=== PATIENT | male | born 1980 | race Caucasian/White ===

== ENCOUNTER 2016-06-28 00:34 | Inpatient (IN) | payer OTHER ==
[2016-06-28] VITALS (8 sets, daily range): BP systolic 131–146; BP diastolic 82–105
[~2016-06-28] VITALS: Ht 185.4 cm; Wt 92.3 kg
--- NOTE | 2016-06-28 02:47 | ED ORDER SUMMARY ---
..... Patient: OSBALDO BENEDICT OrderSheet [facility] VisitID: [id number] [place] [address] 35y, M Registration Date/Time: 06/28/2016 ORDER SHEET Weight: 90.7 kg (stated) Allergies: No Known Drug Allergy GENERAL ORDERS: CBC w Diff Urgent (01:00 06/28/2016 Julien Michelle) (Ack 1:02 SRedmond) (1:06 EInderbitzen R.N.) CMP Urgent (01:06/28/2016 Julien Michelle) (Ack 1:02 SRedmond) (1:06 EInderbitzen R.N.) Amylase Urgent (:06/28/2016 Julien Michelle) (Ack 1:02 SRedmond) (1:06 EInderbitzen R.N.) Lipase Urgent (:06/28/2016 Julien Michelle) (Ack 1:02 SRedmond) (1:06 EInderbitzen R.N.) - (Lipid panel) (02:33 06/28/2016 Julien Michelle) (Ack 2:36 SRedmond) (2:58 EInderbitzen R.N.) Urine Drug Screen Urgent (02:33 06/28/2016 Julien Michelle) (Ack 2:36 SRedmond) (2:57 EInderbitzen R.N.) UA-Culture if indicated Urgent (02:33 06/28/2016 Julien Michelle) (Ack 2:36 SRedmond) (2:57 EInderbitzen R.N.) MEDICATION ORDERS: Promethazine IV 25 mg (HIGH ALERT MEDICATION, NOW) (01:17 06/28/2016 Julien Michelle) (1:20 EInderbitzen R.N.) IV FLUIDS: IV NS : initial bolus none -, then 1000 mL/hr for X2 (NOW) (00:59 06/28/2016 Julien Michelle) (1:02 EInderbitzen R.N.) Zofran IV 4 mg (NOW) (00:59 06/28/2016 Julien Michelle) (1:02 EInderhudson R.N.) Demerol IV 50 mg (HIGH ALERT MEDICATION, NOW) (01:00 06/28/2016 Julien Michelle) (1:06 EInderhudson R.N.) IV Lactated Ringers : initial bolus none -, then 200 mL/hr (NOW) (02:47 06/28/2016 Julien Michelle) (2:58 EIdilip R.N.) Demerol IV 50 mg (HIGH ALERT MEDICATION, NOW) (02:53 06/28/2016 Julien Michelle) (2:58 EInderhudson R.N.) ORDER SHEET NOTES: [Electronically signed by Jasbir Hedrick Dr. (02:48 06/28/2016)] [Electronically signed by Aileen Dias R.N. (03:34 06/28/2016)] [Electronically locked/signed by Aileen iDas R.N. (03:34 06/28/2016)]
--- NOTE | 2016-06-28 02:47 | ED NURSING NOTES ---
Clinical Report - Nurses [facility] [address] [place] [address] 06/28/2016 0:38 Patient: OSBALDO BENEDICT TRIAGE Triage time 00:40 Jun 28 2016. Acuity: LEVEL 3. Chief Complaint: ABDOMINAL PAIN. 00:40 06/28/16. SEPSIS SCREEN: Sepsis Screen. Negative (no infection suspected/documented). ALESIA COMA SCORE: Alesia Coma Scale: 15- eyes open spontaneously (4); best verbal response- oriented x 4 (5); best motor response- obeys commands (6). --00:46 Aileen Dias R.N. 00:40 06/28/16. BP: 148/97. HR: 91. RR: 20. O2 saturation: 97%. Pain level now: 11/29. --00:46 Aileen Dias R.N. Weight: 90.7 kg stated. Height/Length: 73 inches Per Patient. BMI: 26.4. --00:40 Aileen Dias R.N. Medications Lipitor Oral. --00:42 Aileen Dias R.N. BuPROPion HCl Oral. --00:42 Aileen Dias R.N. Fish Oil + D3 Oral. --00:42 Aileen Dias R.N. Medication/allergy information source: the patient. --00:46 Aileen Dias R.N. Allergies No Known Drug Allergy. --00:42 Aileen Dias R.N. History Arrived by private vehicle. Historian: patient. Accompanied by family. This started yesterday. ( History of pancreatitis. He and were in [place] when pain started. Last episode of pancreatitis was alcohol related. He admits to being a binge drinker and they were drinking alot in [place]). He has had nausea, vomiting and abdominal pain. ( unable to keep down food or fluids.). No fever. Treatment [employer]: None. SOCIAL HX: Never smoker. Regular alcohol use. (binge drinker). No drug use. Recent travel by airplane in the last week- [place]. No infectious disease exposure. No known contact with a sick individual. SELF HARM ASSESSMENT: A self harm assessment was performed. The patient answered "no" to the question "Have you recently felt down, depressed, or hopeless?", "Have you noticed less interest or pleasure in doing things?", "Do you have thoughts of harming or killing yourself?", "Are you here because you tried to hurt yourself?", "Have you ever tried to hurt yourself before today?", "Have you recently had thoughts about harming or killing others?" and "Do you have any dangerous items in your possession?". NUTRITIONAL RISK ASSESSMENT: The nutritional risk assessment revealed no deficiencies. FUNCTIONAL ASSESSMENT: Functional assessment: no impairments noted. LEARNING NEEDS ASSESSMENT: The learning needs assessment revealed no barriers. SKIN INTEGRITY ASSESSMENT: Skin integrity risk assessment completed. No skin integrity risk identified. --00:46 Aileen Dias R.N. PROBLEMS: Pancreatitis. --00:42 Aileen Dias R.N. Interventions ID band on patient. --00:46 Aileen Dias R.N. PHYSICAL ASSESSMENT 00:48 06/28/16. Ambulatory to room. GENERAL / NEURO / PSYCH: Alert. Oriented X 4. Appears in pain. HEENT: Mucous membranes are pink. RESPIRATORY: Respirations not labored. CVS: Capillary refill less than 2 seconds. GI / : The patient has had nausea. Emesis noted. Abdomen soft. Abdominal tenderness present. Abdominal tenderness in the upper abdomen. No diffuse tenderness. ( very minimal urine output). SKIN: Skin is warm and dry. --00:48 Aileen Dias R.N. NURSING PROGRESS NOTES 00:47 06/28/2016 Site #1 started via IV in the left antecubital space with an 20g angiocath, with aseptic technique and good blood return; one attempt. Blood drawn: rainbow set. Labeled in the presence of the patient and sent to the lab. Saline lock flushed with 10 mL saline. --00:47 Aileen Dias R.N. 00:47 06/28/16. The initial plan of care for this patient includes an assessment with efforts to address the presence of pain; impairment of the gastrointestinal system. This plan of care was discussed with the patient and family. Patient gowned. Reassurance given. Patient identifiers checked. Call light placed in reach. Side rails up x 1. Bed placed in lowest position. Brakes of bed on. Patient ready for evaluation. --00:47 Aileen Dias R.N. 00:50 06/28/2016 Started bag #1 1000 mL IV Fluids IV NS (Saline); at 1000 mL/hr over 30 minute(s) via site #1 via IV pump. Allergies verified and confirmed 5 rights. IV patency established. IV site checked: no pain, redness, or swelling. IV flushed thoroughly pre- and post-medication administration. --01:02 Aileen Dias R.N. 00:50 06/28/2016 Zofran (Ondansetron HCl) IVP 4 mg given over 1 minute(s) via site #1. Allergies verified and confirmed 5 rights. IV patency established. IV site checked: no pain, redness, or swelling. IV flushed thoroughly pre- and post-medication administration. IVP given by RN. --01:02 Aileen Dias R.N. 01:05 06/28/2016 Demerol (Meperidine HCl) IVP 50 mg given over 1 minute(s) via site #1. Allergies verified and confirmed 5 rights. IV patency established. IV site checked: no pain, redness, or swelling. IV flushed thoroughly pre- and post-medication administration. IVP given by RN. --01:06 Aileen Dias R.N. ( Medicated for pain. family at bedside). --01:06 Aileen Dias R.N. 01:20 06/28/2016 PROMETHAZINE IVP 25 mg given over 10 minute(s) via site #1. Allergies verified and confirmed 5 rights. IV patency established. IV site checked: no pain, redness, or swelling. IV flushed thoroughly pre- and post-medication administration. IVP given by RN. --01:20 Aileen Dias R.N. 01:21 06/28/16. ( Remedicated for continued pain and nausea). --01:21 Aileen Dias R.N. 01:43 06/28/16. BP: 142/90. HR: 90. RR: 14. O2 saturation: 97%. --01:43 Aileen Dias R.N. 01:43 06/28/16. The patient is sleeping. --01:43 Aileen Dias R.N. 02:06/28/16. BP: 127/60. HR: 80. RR: 16. O2 saturation: 97%. Pain level now 05/01. --02:05 Aileen Dias R.N. 02:06/28/16. The patient is calm and resting quietly. Overall patient status is improved- he states feels better. GI / : The patient reports nausea is still present but improving. --02:05 Aileen Dias R.N. 02:55 06/28/2016 Started bag #1 1000 mL IV Fluids IV LACTATED RINGERS; at 200 mL/hr over 5 hour(s) via site #1 via IV pump. Allergies verified and confirmed 5 rights. IV patency established. IV site checked: no pain, redness, or swelling. IV flushed thoroughly pre- and post-medication administration. --02:58 Aileen Dias R.N. 02:56 06/28/2016 Demerol (Meperidine HCl) IVP 50 mg given over 1 minute(s) via site #1. Allergies verified and confirmed 5 rights. IV patency established. IV site checked: no pain, redness, or swelling. IV flushed thoroughly pre- and post-medication administration. IVP given by RN. --02:58 Aileen Dias R.N. DISPOSITION / DISCHARGE 03:29 06/28/2016 IV Fluids IV LACTATED RINGERS Continued: at the rate of 200 mL/hr. 900 mL remaining bag #1. IV patency established. IV site checked: no pain, redness, or swelling. IV flushed thoroughly. --03:29 Aileen Dias R.N. 03:30 06/28/2016 Site #[address] upon admission; patent. --03:30 Aileen Dias R.N. 03:30 06/28/16. Condition at departure: improved and stable. The goals identified in the patient's plan of care were met. Admitted to Acute Care (204). Report was given to a nurse via a phone call. Report included patient's care, treatment, medications, reviewed medication reconcilliation, and condition (including any recent changes or anticipated changes). All questions were answered. (to RAFFI Keller). Patient's personal items; items were placed in belongings bag. FALL RISK ASSESSMENT: Fall risk assessment completed. No fall risk identified. --03:30 Aileen Dias R.N. 03:30 06/28/16. BP: 126/70. HR: 51. RR: 15. O2 saturation: 97%. Temp: 97.9 F. Pain level now 10. --03:30 Aileen Dias R.N. 03:33 06/28/16. Departure time: 03:Jun 28 2016. --03:33 Aileen Dias R.N. Locked/Released at 06/28/2016 3:34 by Aileen Dias R.N.
--- NOTE | 2016-06-28 02:47 | ED ORDER SUMMARY ---
..... Patient: OSBALDO BENEDICT OrderSheet [facility] VisitID: [id number] [place] [address] 35y, M Registration Date/Time: 06/28/2016 ORDER SHEET Weight: 90.7 kg (stated) Allergies: No Known Drug Allergy GENERAL ORDERS: CBC w Diff Urgent (01:00 06/28/2016 Julien Michelle) (Ack 1:02 SRedmond) (1:06 EInderbitzen R.N.) CMP Urgent (01:06/28/2016 Julien Michelle) (Ack 1:02 SRedmond) (1:06 EInderbitzen R.N.) Amylase Urgent (:06/28/2016 Julien Michelle) (Ack 1:02 SRedmond) (1:06 EInderbitzen R.N.) Lipase Urgent (:06/28/2016 Julien Michelle) (Ack 1:02 SRedmond) (1:06 EInderbitzen R.N.) - (Lipid panel) (02:33 06/28/2016 Julien Michelle) (Ack 2:36 SRedmond) (2:58 EInderbitzen R.N.) Urine Drug Screen Urgent (02:33 06/28/2016 Julien Michelle) (Ack 2:36 SRedmond) (2:57 EInderbitzen R.N.) UA-Culture if indicated Urgent (02:33 06/28/2016 Julien Michelle) (Ack 2:36 SRedmond) (2:57 EInderbitzen R.N.) MEDICATION ORDERS: Promethazine IV 25 mg (HIGH ALERT MEDICATION, NOW) (01:17 06/28/2016 Julien Michelle) (1:20 EInderbitzen R.N.) IV FLUIDS: IV NS : initial bolus none -, then 1000 mL/hr for X2 (NOW) (00:59 06/28/2016 Julien Michelle) (1:02 EInderbitzen R.N.) Zofran IV 4 mg (NOW) (00:59 06/28/2016 Julien Michelle) (1:02 EInderhudson R.N.) Demerol IV 50 mg (HIGH ALERT MEDICATION, NOW) (01:00 06/28/2016 Julien Michelle) (1:06 EInderhudson R.N.) IV Lactated Ringers : initial bolus none -, then 200 mL/hr (NOW) (02:47 06/28/2016 Julien Michelle) (2:58 EIdilip R.N.) Demerol IV 50 mg (HIGH ALERT MEDICATION, NOW) (02:53 06/28/2016 Julien Michelle) (2:58 EInderhudson R.N.) ORDER SHEET NOTES: [Electronically signed by Jasbir Hedrick Dr. (02:48 06/28/2016)] [Electronically signed by Aileen Dias R.N. (03:34 06/28/2016)] [Electronically locked/signed by Aileen Dias R.N. (03:34 06/28/2016)]
--- NOTE | 2016-06-28 02:47 | ED CLINICAL REPORT ---
Clinical Report - Physicians/Mid Levels [facility] [address] [place] [address] 06/28/2016 0:38 Patient: OSBALDO BENEDICT Time Seen: 00:41; initial patient contact. Arrived- By private vehicle. Historian- patient. HISTORY OF PRESENT ILLNESS Chief Complaint: ABDOMINAL PAIN. At its maximum, severity described as moderate. When seen in the E.D., severity described as moderate. Modifying factors. Not worsened by anything. Not relieved by anything. It is described as sharp and it is described as located in the epigastric area and radiating to the upper back. This started last night and is still present (persistent). It was gradual in onset and has been constant. The patient has had nausea and loss of appetite. No vomiting or diarrhea. The patient has had recent travel in the last week- [place] (Binge drinking on vacation). Similar symptoms previously: Several times. Recent medical care: Not recently seen/assessed. REVIEW OF SYSTEMS No hematemesis, fever, chest pain, difficulty breathing or cough. He has had chills. All systems otherwise negative, except as recorded above. PAST HISTORY Multiple episodes of alcoholic pancreatitis. SOCIAL HISTORY Never smoker. Occasional alcohol use. (Binge drinker). No drug use. ADDITIONAL NOTES The nursing notes have been reviewed. PHYSICAL EXAM Vital Signs: 06/28/2016 00:40 BP: 148/97. HR: 91. RR: 20. O2 saturation: 97%. Pain level now: 9/10. Have been reviewed. Hypertensive. Heart rate normal. Respiratory rate normal. Temperature normal. Oxygen saturation normal. Appearance: Alert. Oriented X3. Eyes: Eyes normal inspection. ENT: Dry mucous membranes present. Neck: Normal inspection. CVS: Normal heart rate and rhythm. Heart sounds normal. Respiratory: No respiratory distress. Breath sounds normal. Abdomen: Soft. Moderate tenderness in the epigastric area with guarding present. No rebound tenderness or Sanchez's sign present. Bowel sounds normal. No organomegaly. No mass. Back: Normal inspection. Skin: Poor skin turgor. Skin warm and dry. Normal skin color. No rash. Extremities: No lower extremity edema. Neuro: Oriented X 3. LABS, X-RAYS, AND EKG Laboratory Tests: CBC w Diff: (JOHNNIE: 06/28/2016 01:00) ( MsgRcvd 06/28/2016 01:07) Final results Test Result Flag Units (Reference) WHITE BLOOD COUNT 19.5 H K/uL (4.5-11.5) RED BLOOD COUNT 5.28 M/uL (4.50-5.90) HEMOGLOBIN 15.6 gm/dL (13.5-17.5) HEMATOCRIT 45.8 % (41.0-53.0) MEAN CELL VOLUME 87 fL (80-100) MEAN CORPUSCULAR HGB 30 pg (26-34) MEAN CORPUSCULAR HGB CONC 34 g/dL (31-37) RED CELL DISTRIBUTION WIDTH 13.4 % (11.6-14.8) PLATELET COUNT 340 K/uL (150-400) NEUTROPHIL % 90.1 H % (50-75) LYMPH % 5.0 L % (25-40) MONO % 4.6 % (3-14) EOSINOPHIL % 0 % (0-4) BASOPHIL % 0.3 % (0-2) CMP: (JOHNNIE: 06/28/2016 01:00) ( MsgRcvd 06/28/2016 01:22) Final results Test Result Flag Units (Reference) GLUCOSE 142 H mg/dL (70-110) BUN 23 H mg/dL (7-18) CREATININE 1.0 mg/dL (0.6-1.3) Estimated GFR >60 mL/min Estimated GFR- >60 mL/min Note: Persistent reduction over 3 months in eGFR<60 mL/min/1.73 m2 defines CKD. Patients with eGFR values>=60 mL/min/1.73 m2 may also have CKD if evidence ofpersistent proteinuria. Additional information may be foundat www.kidney.org. SODIUM 139 mmol/L (136-145) POTASSIUM 4.1 mmol/L (3.5-5.1) CHLORIDE 101 mmol/L (98-107) CARBON DIOXIDE 26 mmol/L (21-32) CALCIUM 9.4 mg/dL (8.5-10.1) TOTAL PROTEIN 8.4 H g/dL (6.4-8.2) ALBUMIN 4.2 g/dL (3.3-5.0) BILIRUBIN, TOTAL 0.8 mg/dL (0.0-1.0) ALKALINE PHOSPHATASE 71 U/L (46-116) AST (SGOT) 50 H U/L (15-37) ALT (SGPT) 78 U/L (12-78) LIPASE 2056 H U/L (73-393) AMYLASE 149 H U/L (25-115) . PROGRESS AND PROCEDURES Discussed case with hospitalist, (call returned 02:30 Dr. Schmitt. Add lipid panel and will place in obs.). Disposition: Observation in Acute Care. Condition: good. CLINICAL IMPRESSION Acute alcoholic pancreatitis. Moderate leukocytosis. INSTRUCTIONS Follow-up: Screening today revealed the patient's blood pressure to be in the pre-hypertensive range. The patient was admitted and blood pressure will be managed during the admission. (Electronically signed by Jasbir Hedrick Dr. 06/28/2016 2:48)
--- NOTE | 2016-06-28 03:36 | ED MED RECONCILIATION SUMMARY ---
Patient: OSBALDO BENEDICT Medication Reconciliation Report [facility] VisitID: [id number] [address] [place] [address] 35y, M Registration Date/Time: 06/28/2016 Weight: 90.7 kg Height/Length: 73 in. BMI: 26.4 ALLERGIES: No Known Drug Allergy The patient's Home Medications are listed below: THE FOLLOWING MEDICATIONS NEED TO BE RECONCILED: BuPROPion HCl Oral Fish Oil + D3 Oral Lipitor Oral The source(s) of the original Home Medication information: patient The following Medications were given to the patient in the Emergency Department: IV NS IV Fluids bolus 0, then 1000 mL/hr, administered: 06/28/2016 12:50:00 AM Zofran [IVP] IVP 4 mg, administered: 06/28/2016 12:50:00 AM Demerol [IVP] IVP 50 mg, administered: 06/28/2016 1:05:00 AM PROMETHAZINE [IVP] IVP 25 mg, administered: 06/28/2016 1:20:00 AM IV LACTATED RINGERS IV Fluids bolus 0, then 200 mL/hr, administered: 06/28/2016 2:55:00 AM Demerol [IVP] IVP 50 mg, administered: 06/28/2016 2:56:00 AM The following Medications were prescribed to the patient: None.
--- NOTE | 2016-06-28 03:36 | ED DISCHARGE INSTRUCTIONS ---
Patient: OSBALDO BENEDICT General Instructions [facility] VisitID: [id number] [address] [place] [address] 35y, M Registration Date/Time: 06/28/2016 Acute alcoholic pancreatitis. Moderate leukocytosis. INSTRUCTIONS Follow-up: Screening today revealed the patient's blood pressure to be in the pre-hypertensive range. The patient was admitted and blood pressure will be managed during the admission. (Electronically signed by Jasbir Hedrick Dr. 06/28/2016 2:48)
--- NOTE | 2016-06-28 03:36 | ED DISCHARGE INSTRUCTIONS ---
Patient: OSBALDO BENEDICT General Instructions [facility] VisitID: [id number] [address] [place] [place] [address] 35y, M Registration Date/Time: 06/28/2016 Acute alcoholic pancreatitis. Moderate leukocytosis. INSTRUCTIONS Follow-up: Screening today revealed the patient's blood pressure to be in the pre-hypertensive range. The patient was admitted and blood pressure will be managed during the admission. (Electronically signed by Jasbir Hedrick Dr. 06/28/2016 2:48)
--- NOTE | 2016-06-28 03:36 | ED MAR SUMMARY ---
..... Medication Administration Record [facility] [address] [place] [address] Patient: OSBALDO BENEDICT Visit ID: [id number] 35y, M Weight: 90.7 kg Height/Length: 73 in BMI: 26.4 ALLERGIES: No Known Drug Allergy Start 00:50 06/28/2016 Aileen Dias R.N. Medication Administered: IV NS (SALINE), Dose: IV Fluids over 30 minute(s), Rate: 1000 mL/hr, Dispensed: 1000 mL bag, Site: #1 left AC. Medication Ordered: IV NS : initial bolus none -, then 1000 mL/hr for X2 (NOW). Given 00:50 06/28/2016 Aileen Dias R.N. Medication Administered: ZOFRAN [IVP] (ONDANSETRON HCL), Dose: 4 mg IVP over 1 minute(s), Site: #1 left AC. Medication Ordered: Zofran IV 4 mg (NOW). Given 01:05 06/28/2016 Aileen Dias R.N. Medication Administered: DEMEROL [IVP] (MEPERIDINE HCL), Dose: 50 mg IVP over 1 minute(s), Site: #1 left AC. Medication Ordered: Demerol IV 50 mg (HIGH ALERT MEDICATION, NOW). Given 01:20 06/28/2016 Aileen Dias R.N. Medication Administered: PROMETHAZINE [IVP], Dose: 25 mg IVP over 10 minute(s), Site: #1 left AC. Medication Ordered: Promethazine IV 25 mg (HIGH ALERT MEDICATION, NOW). Start 02:55 06/28/2016 Aileen Dias R.N., Continued Upon Disposition 03:29 06/28/2016 Aileen Dias R.N. Medication Administered: IV LACTATED RINGERS, Dose: IV Fluids over 5 hour(s), Rate: 200 mL/hr, Dispensed: 1000 mL bag, Site: #1 left AC. Medication Ordered: IV Lactated Ringers : initial bolus none -, then 200 mL/hr (NOW). Given 02:56 06/28/2016 Aileen Dias R.N. Medication Administered: DEMEROL [IVP] (MEPERIDINE HCL), Dose: 50 mg IVP over 1 minute(s), Site: #1 left AC. Medication Ordered: Demerol IV 50 mg (HIGH ALERT MEDICATION, NOW).
--- NOTE | 2016-06-28 03:36 | ED MAR SUMMARY ---
..... Medication Administration Record [facility] [address] [place] [address] Patient: OSBALDO BENEDICT Visit ID: [id number] 35y, M Weight: 90.7 kg Height/Length: 73 in BMI: 26.4 ALLERGIES: No Known Drug Allergy Start 00:50 06/28/2016 Aileen Dias R.N. Medication Administered: IV NS (SALINE), Dose: IV Fluids over 30 minute(s), Rate: 1000 mL/hr, Dispensed: 1000 mL bag, Site: #1 left AC. Medication Ordered: IV NS : initial bolus none -, then 1000 mL/hr for X2 (NOW). Given 00:50 06/28/2016 Aileen Dias R.N. Medication Administered: ZOFRAN [IVP] (ONDANSETRON HCL), Dose: 4 mg IVP over 1 minute(s), Site: #1 left AC. Medication Ordered: Zofran IV 4 mg (NOW). Given 01:05 06/28/2016 Aileen Dias R.N. Medication Administered: DEMEROL [IVP] (MEPERIDINE HCL), Dose: 50 mg IVP over 1 minute(s), Site: #1 left AC. Medication Ordered: Demerol IV 50 mg (HIGH ALERT MEDICATION, NOW). Given 01:20 06/28/2016 Aileen Dias R.N. Medication Administered: PROMETHAZINE [IVP], Dose: 25 mg IVP over 10 minute(s), Site: #1 left AC. Medication Ordered: Promethazine IV 25 mg (HIGH ALERT MEDICATION, NOW). Start 02:55 06/28/2016 Aileen Dias R.N., Continued Upon Disposition 03:29 06/28/2016 Aileen Dias R.N. Medication Administered: IV LACTATED RINGERS, Dose: IV Fluids over 5 hour(s), Rate: 200 mL/hr, Dispensed: 1000 mL bag, Site: #1 left AC. Medication Ordered: IV Lactated Ringers : initial bolus none -, then 200 mL/hr (NOW). Given 02:56 06/28/2016 Aileen Dias R.N. Medication Administered: DEMEROL [IVP] (MEPERIDINE HCL), Dose: 50 mg IVP over 1 minute(s), Site: #1 left AC. Medication Ordered: Demerol IV 50 mg (HIGH ALERT MEDICATION, NOW).
--- NOTE | 2016-06-28 03:36 | ED MED RECONCILIATION SUMMARY ---
Patient: OSBALDO BENEDICT Medication Reconciliation Report [facility] VisitID: [id number] [address] [place] [address] 35y, M Registration Date/Time: 06/28/2016 Weight: 90.7 kg Height/Length: 73 in. BMI: 26.4 ALLERGIES: No Known Drug Allergy The patient's Home Medications are listed below: THE FOLLOWING MEDICATIONS NEED TO BE RECONCILED: BuPROPion HCl Oral Fish Oil + D3 Oral Lipitor Oral The source(s) of the original Home Medication information: patient The following Medications were given to the patient in the Emergency Department: IV NS IV Fluids bolus 0, then 1000 mL/hr, administered: 06/28/2016 12:50:00 AM Zofran [IVP] IVP 4 mg, administered: 06/28/2016 12:50:00 AM Demerol [IVP] IVP 50 mg, administered: 06/28/2016 1:05:00 AM PROMETHAZINE [IVP] IVP 25 mg, administered: 06/28/2016 1:20:00 AM IV LACTATED RINGERS IV Fluids bolus 0, then 200 mL/hr, administered: 06/28/2016 2:55:00 AM Demerol [IVP] IVP 50 mg, administered: 06/28/2016 2:56:00 AM The following Medications were prescribed to the patient: None.
--- NOTE | 2016-06-28 03:49 | NUR ---
ADMITTED FROM ED PER KATHRYN ACCOMPANIED BY AND STAFF. ABLE TO TRANSFER TO BED WITH SBA. IVF LR INFUSING TO LAC.
[2016-06-28] MEDS ORDERED: BUPROPION HCL150 M3 PO (05:04)
[2016-06-28] MEDS ORDERED: FISH OIL + D3 PO (05:05)
[2016-06-28] MEDS ORDERED: LIPITOR10 MG PO (05:05)
--- NOTE | 2016-06-28 06:43 | Progress Note ---
Subjective General Admission History and Physical Examination Patient Name: Jesus Ann Admission Date: June 28, 2016 Primary Care Provider: None Attending Physician: Silvestre Schmitt M.D. Admitting Physician: Silvestre Schmitt M.D. Code Status: Full Code Room: 204-B SUBJECTIVE Historian: Patient and Reliability: Good Chief Complaint: Abdominal pain, nausea, vomiting History of Present Illness: The patient is a 35-year-old white male with a significant past medical history of hyperlipidemia, depression, who presented to [facility] emergency department on the day of admission secondary to complaints of abdominal pain, nausea, and vomiting of 2 days' duration. [facility] ER evaluation was consistent with acute pancreatitis felt secondary to alcohol abuse. Secondary to the above, the patient was admitted by Silvestre Schmitt M.D. for further evaluation treatment. The history of present was pale began on the day prior to admission when the patient developed abdominal pain in the epigastric region, nausea, and vomiting. This occurred at the end of a long vacation in [place] where the patient had consumed large amounts of alcohol. He has a previous history of alcohol-induced pancreatitis. Secondary to increasing symptoms patient's sought out medical attention on arrival home from vacation. [facility] ER evaluation showed physical findings and laboratory testing consistent with acute pancreatitis. No imaging studies were obtained. Secondary to the above, the patient was admitted for further evaluation and treatment. PAST MEDICAL HISTORY Illnesses: 1. Recurrent pancreatitis 2. Gastritis 3. Hyperlipidemia 4. Depression Allergies: 1. No Known Drug Allergies Medications: 1. Lipitor dosage unknown one by mouth daily 2. Bupropion dosage unknown one by mouth twice a day 3. Fish oil dosage unknown one by mouth 3 times a day 4. Multivitamin one by mouth daily Surgery: 1. 2016, Achilles tendon repair Injuries: 1. Achilles tendon rupture Hospitalizations: 1. For above surgery and medical problems. FAMILY HISTORY Parents: 1. Father, Antony, living, 63, hypercholesterolemia, 2. Mother, Cammy, living, 63, also Alzheimer's dementia Siblings: 1. Female, Anastacia, living, 29, kidney disease Children: 1. Female, To, living, 6, healthy 2. Male, Yoni, , 5 months, SIDS Other significant family history: None SOCIAL HISTORY 1. Marital Status: 2. Baptism: None 3. Education: High school, 2 years college with AA degree 4. Employment History: [employer] 2-1/2 years, currently unemployed 5. Occupational health exposures: None HABITS 1. Tobacco: None 2. Drugs: None 3. Alcohol: Binge drinking 4. Caffeine: None HEALTH SUPERVISION Item/Test 1. Not reviewed IMMUNIZATIONS: 1. Pneumococcal: No previous 2. Influenza: Unknown 3. Tetanus: Unknown ADVANCED DIRECTIVES: 1. Living well: No 2. POLST: No 3. Code Status: FULL CODE 4. Durable [employer] Health care: No 5. Donor card: No REVIEW OF SYSTEMS Remarkable for those things stated in the history of present illness and past medical history. Seventeen point review of system completed with the following notable findings: General: Abdominal pain Genitourinary: Poor urinary stream Gastrointestinal: Nausea and vomiting, heartburn, reflux Psychological: Depression, insomnia, anxiety Physical Exam Vital Signs / I&Os Vital Signs Date Time Temp Pulse Resp B/P Pulse O2 O2 Flow FiO2 Ox Delivery Rate 06/28 0513 131/95 06/28 0354 97.9 89 20 145/105 97 Room Air General Appearance Alert, Oriented X3, Cooperative, No acute distress HEENT Atraumatic, PERRLA, EOMI, Moist mucous membranes Lungs Clear to auscultation, Normal air movement Neck Supple, No JVD Cardiovascular Regular rate and rhythm, Normal S1 and S2, No murmurs, gallops, rubs Abdomen Normal bowel sounds, Soft, epigastric tenderness present. No rebound. Extremities No cyanosis, No clubbing, No edema, Normal pulses Neurological Cranial nerves intact, Strength 5/5 x4 ext's, No lateralizing signs Psych/Mental Status Mental status normal, Mood normal LAB Results Laboratory Tests 06/28 06/28 06/28 0250 0235 0100 Chemistry Plasma Sodium (136 - 145 mmol/L) 139 Plasma Potassium (3.5 - 5.1 mmol/L) 4.1 Plasma Chloride (98 - 107 mmol/L) 101 CO2 (Enzymatic) (21 - 32 mmol/L) 26 BUN (7 - 18 mg/dL) 23 Creatinine (0.6 - 1.3 mg/dL) 1.0 Est GFR ( Amer) (mL/min) >60 Est GFR (Non-Af Amer) (mL/min) >60 Glucose (70 - 110 mg/dL) 142 Plasma Calcium (8.5 - 10.1 mg/dL) 9.4 Total Bilirubin (0.0 - 1.0 mg/dL) 0.8 AST (15 - 37 U/L) 50 ALT (12 - 78 U/L) 78 Alkaline Phosphatase (46 - 116 U/L) 71 Total Protein (6.4 - 8.2 g/dL) 8.4 Albumin (3.3 - 5.0 g/dL) 4.2 Triglycerides (30 - 200 mg/dL) Cancelled Pending Cholesterol (140 - 200 mg/dL) Cancelled Pending LDL Cholesterol, Calc (mg/dL) Cancelled Pending HDL Cholesterol (32 - 96 mg/dL) Cancelled Pending LDL/HDL Ratio Cancelled Pending Cholesterol/HDL Ratio Cancelled Pending Coronary Risk Interp (0.4 - 1.0) Cancelled Pending Amylase (25 - 115 U/L) 149 Lipase (73 - 393 U/L) 2056 Hematology WBC (4.5 - 11.5 K/uL) 19.5 RBC (4.50 - 5.90 M/uL) 5.28 Hgb (13.5 - 17.5 gm/dL) 15.6 Hct (41.0 - 53.0 %) 45.8 MCV (80 - 100 fL) 87 MCH (26 - 34 pg) 30 RDW (11.6 - 14.8 %) 13.4 Neut % (Auto) (50 - 75 %) 90.1 Lymph % (Auto) (25 - 40 %) 5.0 [place] % (Auto) (3 - 14 %) 4.6 Eos % (Auto) (0 - 4 %) 0 Baso % (Auto) (0 - 2 %) 0.3 Plt Count, EDTA (150 - 400 K/uL) 340 PUBS MCHC (31 - 37 g/dL) 34 Toxicology Urine Opiates Screen (NEGATIVE) POSITIVE Urine Methadone Screen (NEGATIVE) NEGATIVE Ur Barbiturates Screen (NEGATIVE) NEGATIVE U Amphetamin/Meth Scrn (NEGATIVE) NEGATIVE MDMA (Ecstasy) Screen (NEGATIVE) POSITIVE U Benzodiazepines Scrn (NEGATIVE) POSITIVE Urine Cocaine Screen (NEGATIVE) NEGATIVE U Cannabinoids Screen (NEGATIVE) NEGATIVE Urines Urine Color RIGOBERTO Urine Appearance CLEAR Urine pH (5.0 - 8.0) 6.0 Ur Specific [place] (1.010 - 1.030) >= 1.030 Urine Protein (NEGATIVE) 1+ Urine Ketones (NEGATIVE) NEGATIVE Urine Blood (NEGATIVE) NEGATIVE Urine Nitrite (NEGATIVE) NEGATIVE Urine Bilirubin (NEGATIVE) NEGATIVE Urine Urobilinogen (0.2 - 1.0 EU/dL) 0.2 Ur Leukocyte Esterase (NEGATIVE) NEGATIVE Urine RBC (0 - 1 rbc/hpf) NONE SEEN Urine WBC (0 - 1 wbc/hpf) 0-1 Ur Epithelial Cells (0 - 5 EPI/hpf) 1-3 Urine Bacteria (NONE SEEN) FEW (1+) Urine Glucose (NEGATIVE) NEGATIVE Urine Comment CULT NOT INDICATED Assessment and Plan Problem List 1. Pancreatitis, alcoholic, acute Plan -Patient presents with findings of acute pancreatitis. -Patient has experienced previous episodes of pancreatitis stated to be related to alcohol consumption -Obtain lipid profile -Abdominal ultrasound -IV fluid therapy, nothing by mouth except ice chips, anti-medics, pain medications -Monitor 2. Hyperlipidemia Status Chronic Onset Date Unknown Plan -The patient has a history of hyperlipidemia -We'll obtain lipid profile to assess for hypertriglyceridemia -Placed back on oral medications when appropriate -Monitor -Low-cholesterol/low-fat diet when taking orally 3. Depression Status Chronic Onset Date Unknown Plan -Patient with history of depression -Continue outpatient medical regimen when taking well orally 4. Alcohol abuse Status Chronic Onset Date Unknown Plan -Patient with history of alcohol abuse/binge drinking -We'll discuss alcohol consumption habits with patient during his hospital stay -I discussed curtailing alcohol consumption post hospitalization. Current status: Fair, unstable Anticipated discharge date: Anticipated discharge in 2-3 days Anticipated discharge placement: Home Patient care time: Time spent in chart review, patient interview, physical exam, CPOE, and care documentation: 70 minutes Visit to patient today: 1 Complexity of care: High Initial patient evaluation: Emergency department E&M Codes Admission: Inpt-High/[id number]
[2016-06-28] MEDS ORDERED: [UNRECOGNIZED DRUG - OTHER] PO (12:18)
--- NOTE | 2016-06-28 12:35 | DIAGNOSTIC IMAGING REPORT ---
PROCEDURE: US ABDOMEN ULTRASOUND-COMPLETE INDICATION: pancreatitis TECHNIQUE: Muir scale and color Doppler sonographic images of the abdomen were obtained without comparison. COMPARISON: None. FINDINGS: There is a small amount of fluid around the tip of the liver. The liver is normal in size, contour, and echotexture. No mass or intrahepatic biliary dilatation. The gallbladder is distended but appears normal without stones or sludge. The wall is normal thickness measuring 2.3 mm No pericholecystic fluid or Sanchez sign. The extrahepatic common duct is not seen due to bowel gas. The pancreas was not seen secondary to bowel gas. The mid and distal abdominal aorta was also shadowed. Retrohepatic inferior vena cava is patent. There is appropriate direction of flow in the portal vein. The right kidney measures 13.6 cm in length. The left kidney measures 13.5 centimeters in length. Both kidneys demonstrate normal morphology and cortical thickness without hydronephrosis, cyst, solid mass, or shadowing calculus. Color Doppler imaging demonstrates normal blood flow in each kidney. In the left upper quadrant of the abdomen, there is an irregular cystic structure adjacent to the spleen measuring about 10.6 x 8.8 cm with probable septation. The spleen is normal in size measuring 11.2 cm in length. IMPRESSION: 1. 10.6 cm left upper quadrant cystic structure. In the setting of pancreatitis, this is suspicious for a pseudocyst. 2. Nonvisualization of the majority the pancreas. 3. Trace right upper quadrant free fluid. 4. Normal-appearing gallbladder. Common duct was not visible. 5. Findings discussed with Dr. Coombs.
--- NOTE | 2016-06-28 14:30 | NUR ---
0800- ASSESSMENT COMPLETED. PT IS ALERT AND ORIENTED. C/O NAUSEA, NO VOMITING. CONSTANT ABD PAIN. MANAGING WITH IV PAIN MEDS. 1000- PATIENT REQUESTING JAZZY TYLER MD ORDERED OK.
--- NOTE | 2016-06-28 15:30 | NUR ---
PT ALERT AND ORIENTED IN BED, AMBULATED TO BR WELL, WITHOUT ISSUE. REQUESTS ICE CHIPS FROM [facility] AND NURSES THAT GO INTO ROOM. HAD CONVERSATION WITH PT ABOUT IMPORTANCE OF NPO AND RESTING ABD. PT BEGAN FIDGETING WITH WASHCLOTH THAT WAS ON HEAD. ASKED PT IF FELT HOT, STATED "FEEL LIKE I HAVE A FEVER". RINSED IN COLD WATER FOR RELIEF. PT IS DIAPHORETIC, SLIGHT TREMORS AND EYES ARE SHIFTING L TO R. STATES PAIN IN R MID QUADRANT OF ABD. NO RIGIDITY NOTED. SCORED 7 ON WITHDRAWL SCALE. MONITORING URINE OUTPUT. WCTM.
--- NOTE | 2016-06-28 19:28 | NUR ---
PT HAD FAMILY VISITING AND REQUESTED SINGLE ROOM. MOVED FROM 4B TO 2. DAUGHTER AND SON WERE UPSET AND PT WAS VISIBLY IRRITATED WITH VISIT AND KIDS TALKING. DID NOT WANT TO ANSWER 'S QUESTIONS AND DIVERTED THEM TO THIS RN. WASHCLOTH REMAINS ON FOREHEAD AND IS FIDGETED WITH. PT AMBULATED TO BR AND STATED PAIN IN ABD DUE TO "GETTING UP TOO FAST". FELT BETTER AFTER RESTING. MONITORING WITHDRAWL SX.
--- NOTE | 2016-06-28 21:07 | NUR ---
PT AMBULATED TO BR WELL, DENIES PAIN AT THIS TIME. SEEMS TO BE CALMER AND LESS ANXIOUS.
--- NOTE | 2016-06-29 00:34 | NUR ---
PT. IS AWAKE AT THIS TIME, RESTING AND CALM. WAS C/O 6/10 ABDOMINAL PAIN, ADMINISTERED DILAUDID PER ORDER. PT. STATES THIS WAS EFFECTIVE. ETOH PROTOCOL SCORE AT 6. DENIES NAUSEA. GAVE SMALL AMOUNT OF ICE CHIPS. CALL LIGHT WITHIN REACH. WCTM.
[2016-06-29 03:00] VITALS: BP 134/89
[2016-06-29 06:15] VITALS: BP 140/90
--- NOTE | 2016-06-29 07:37 | NUR ---
AT APPROX. 0630, PT. BEGAN TO C/O DIZZINESS AND THE "ROOM IS SPINNING." AND STATED THAT HE DIDN'T FEEL HIMSELF. VSS, NOTIFIED DR. ESPINOZA. NO NEW ORDERS.
--- NOTE | 2016-06-29 08:39 | Progress Note ---
Subjective General Brief Hx: The patient is a 35-year-old white male with a significant past medical history of hyperlipidemia, depression, who presented to [facility] emergency department on the day of admission secondary to complaints of abdominal pain, nausea, and vomiting of 2 days' duration. [facility] ER evaluation was consistent with acute pancreatitis felt secondary to alcohol abuse. Secondary to the above, the patient was admitted by Silvestre Schmitt M.D. for further evaluation treatment. The history of present was pale began on the day prior to admission when the patient developed abdominal pain in the epigastric region, nausea, and vomiting. This occurred at the end of a long vacation in [place] where the patient had consumed large amounts of alcohol. He has a previous history of alcohol-induced pancreatitis. Secondary to increasing symptoms patient's sought out medical attention on arrival home from vacation. [facility] ER evaluation showed physical findings and laboratory testing consistent with acute pancreatitis. No imaging studies were obtained. Secondary to the above, the patient was admitted for further evaluation and treatment. Currently, a little better than yesterday. Feels a little dry at this time and conc entrated urine. Not much nausea or vomiting. Feeling better but not passing gas. Physical Exam Vital Signs / I&Os Vital Signs Date Time Temp Pulse Resp B/P Pulse O2 O2 Flow FiO2 Ox Delivery Rate 06/29 0615 99.1 99 16 140/90 92 Room Air 06/29 0300 99.7 95 18 134/89 92 Room Air 06/29 0021 98.6 94 06/28 2246 100.2 101 18 140/90 92 Room Air 06/28 1814 97.5 94 20 138/99 96 Room Air 06/28 1423 97.7 93 20 140/98 98 Room Air 06/28 1421 99.1 93 20 135/82 98 Room Air 06/28 1219 97.3 103 20 146/101 98 Room Air I&O 06/29 0000 06/28 1600 06/28 0800 Intake Total 955 1764 242 Output Total 625 150 200 Balance 330 1614 42 General Appearance Alert, Cooperative HEENT Normal exam Lungs Normal exam, Clear to auscultation, Normal air movement Cardiovascular Regular rate and rhythm, Normal S1 and S2, No murmurs, gallops, rubs Abdomen slightly distended, tender diffusely Extremities No edema LAB Results Laboratory Tests 06/29 06/29 06/28 0757 0757 1012 Chemistry Plasma Sodium (136 - 145 mmol/L) Pending 141 Plasma Potassium (3.5 - 5.1 mmol/L) Pending 4.1 Plasma Chloride (98 - 107 mmol/L) Pending 106 CO2 (Enzymatic) (21 - 32 mmol/L) Pending 25 BUN (7 - 18 mg/dL) Pending 21 Creatinine (0.6 - 1.3 mg/dL) Pending 0.8 Est GFR ( Amer) (mL/min) Pending >60 Est GFR (Non-Af Amer) (mL/min) Pending >60 Glucose (70 - 110 mg/dL) Pending 121 Plasma Calcium (8.5 - 10.1 mg/dL) Pending 8.5 Total Bilirubin (0.0 - 1.0 mg/dL) Pending 0.8 AST (15 - 37 U/L) Pending 30 ALT (12 - 78 U/L) Pending 53 Alkaline Phosphatase (46 - 116 U/L) Pending 54 Total Protein (6.4 - 8.2 g/dL) Pending 6.6 Albumin (3.3 - 5.0 g/dL) Pending 3.1 Triglycerides (30 - 200 mg/dL) 217 Cholesterol (140 - 200 mg/dL) 112 LDL Cholesterol, Calc (mg/dL) 16 HDL Cholesterol (32 - 96 mg/dL) 53 LDL/HDL Ratio 0.3 Cholesterol/HDL Ratio 2.1 Coronary Risk Interp (0.4 - 1.0) 0.4 Amylase (25 - 115 U/L) 129 227 Lipase (73 - 393 U/L) 1443 7403 Hematology WBC (4.5 - 11.5 K/uL) 14.3 14.8 RBC (4.50 - 5.90 M/uL) 4.36 4.90 Hgb (13.5 - 17.5 gm/dL) 12.9 14.2 Hct (41.0 - 53.0 %) 37.7 42.7 MCV (80 - 100 fL) 87 87 MCH (26 - 34 pg) 30 29 RDW (11.6 - 14.8 %) 13.5 13.3 Neut % (Auto) (50 - 75 %) 87.8 66 Lymph % (Auto) (25 - 40 %) 8.2 9 [place] % (Auto) (3 - 14 %) 3.4 2 Eos % (Auto) (0 - 4 %) 0.5 2 Baso % (Auto) (0 - 2 %) 0.1 0 Band Neutrophils % (0 - 8 %) 21 Metamyelocytes % (0 - 1 %) 0 Myelocytes (0 - 1 %) 0 Other Cell Type 0 Plt Count, EDTA (150 - 400 K/uL) 194 235 RBC Morphology (6294 A) NORMOCHROMIC PUBS MCHC (31 - 37 g/dL) [address] abdmen: IMPRESSION: 1. 10.6 cm left upper quadrant cystic structure. In the setting of pancreatitis, this is suspicious for a pseudocyst. 2. Nonvisualization of the majority the pancreas. 3. Trace right upper quadrant free fluid. 4. Normal-appearing gallbladder. Common duct was not visible. Assessment and Plan Problem List 1. Pancreatitis, alcoholic, acute Plan Patient is wtih alcholic pancreatitis and large pseudocyst. 2. Leukocytosis, unspecified Plan Has improvement slight this am. 3. Alcohol abuse Status Chronic Onset Date Unknown Plan Discussed quitting drinking overall and AA this am.
--- NOTE | 2016-06-29 08:39 | Progress Note ---
Subjective General Brief Hx: The patient is a 35-year-old white male with a significant past medical history of hyperlipidemia, depression, who presented to [facility] emergency department on the day of admission secondary to complaints of abdominal pain, nausea, and vomiting of 2 days' duration. [facility] ER evaluation was consistent with acute pancreatitis felt secondary to alcohol abuse. Secondary to the above, the patient was admitted by Silvestre Schmitt M.D. for further evaluation treatment. The history of present was pale began on the day prior to admission when the patient developed abdominal pain in the epigastric region, nausea, and vomiting. This occurred at the end of a long vacation in [place] where the patient had consumed large amounts of alcohol. He has a previous history of alcohol-induced pancreatitis. Secondary to increasing symptoms patient's sought out medical attention on arrival home from vacation. [facility] ER evaluation showed physical findings and laboratory testing consistent with acute pancreatitis. No imaging studies were obtained. Secondary to the above, the patient was admitted for further evaluation and treatment. Currently, a little better than yesterday. Feels a little dry at this time and conc entrated urine. Not much nausea or vomiting. Feeling better but not passing gas. Physical Exam Vital Signs / I&Os Vital Signs Date Time Temp Pulse Resp B/P Pulse O2 O2 Flow FiO2 Ox Delivery Rate 06/29 0615 99.1 99 16 140/90 92 Room Air 06/29 0300 99.7 95 18 134/89 92 Room Air 06/29 0021 98.6 94 06/28 2246 100.2 101 18 140/90 92 Room Air 06/28 1814 97.5 94 20 138/99 96 Room Air 06/28 1423 97.7 93 20 140/98 98 Room Air 06/28 1421 99.1 93 20 135/82 98 Room Air 06/28 1219 97.3 103 20 146/101 98 Room Air I&O 06/29 0000 06/28 1600 06/28 0800 Intake Total 955 1764 242 Output Total 625 150 200 Balance 330 1614 42 General Appearance Alert, Cooperative HEENT Normal exam Lungs Normal exam, Clear to auscultation, Normal air movement Cardiovascular Regular rate and rhythm, Normal S1 and S2, No murmurs, gallops, rubs Abdomen slightly distended, tender diffusely Extremities No edema LAB Results Laboratory Tests 06/29 06/29 06/28 0757 0757 1012 Chemistry Plasma Sodium (136 - 145 mmol/L) Pending 141 Plasma Potassium (3.5 - 5.1 mmol/L) Pending 4.1 Plasma Chloride (98 - 107 mmol/L) Pending 106 CO2 (Enzymatic) (21 - 32 mmol/L) Pending 25 BUN (7 - 18 mg/dL) Pending 21 Creatinine (0.6 - 1.3 mg/dL) Pending 0.8 Est GFR ( Amer) (mL/min) Pending >60 Est GFR (Non-Af Amer) (mL/min) Pending >60 Glucose (70 - 110 mg/dL) Pending 121 Plasma Calcium (8.5 - 10.1 mg/dL) Pending 8.5 Total Bilirubin (0.0 - 1.0 mg/dL) Pending 0.8 AST (15 - 37 U/L) Pending 30 ALT (12 - 78 U/L) Pending 53 Alkaline Phosphatase (46 - 116 U/L) Pending 54 Total Protein (6.4 - 8.2 g/dL) Pending 6.6 Albumin (3.3 - 5.0 g/dL) Pending 3.1 Triglycerides (30 - 200 mg/dL) 217 Cholesterol (140 - 200 mg/dL) 112 LDL Cholesterol, Calc (mg/dL) 16 HDL Cholesterol (32 - 96 mg/dL) 53 LDL/HDL Ratio 0.3 Cholesterol/HDL Ratio 2.1 Coronary Risk Interp (0.4 - 1.0) 0.4 Amylase (25 - 115 U/L) 129 227 Lipase (73 - 393 U/L) 1443 7403 Hematology WBC (4.5 - 11.5 K/uL) 14.3 14.8 RBC (4.50 - 5.90 M/uL) 4.36 4.90 Hgb (13.5 - 17.5 gm/dL) 12.9 14.2 Hct (41.0 - 53.0 %) 37.7 42.7 MCV (80 - 100 fL) 87 87 MCH (26 - 34 pg) 30 29 RDW (11.6 - 14.8 %) 13.5 13.3 Neut % (Auto) (50 - 75 %) 87.8 66 Lymph % (Auto) (25 - 40 %) 8.2 9 [place] % (Auto) (3 - 14 %) 3.4 2 Eos % (Auto) (0 - 4 %) 0.5 2 Baso % (Auto) (0 - 2 %) 0.1 0 Band Neutrophils % (0 - 8 %) 21 Metamyelocytes % (0 - 1 %) 0 Myelocytes (0 - 1 %) 0 Other Cell Type 0 Plt Count, EDTA (150 - 400 K/uL) 194 235 RBC Morphology (6294 A) NORMOCHROMIC PUBS MCHC (31 - 37 g/dL) [address] abdmen: IMPRESSION: 1. 10.6 cm left upper quadrant cystic structure. In the setting of pancreatitis, this is suspicious for a pseudocyst. 2. Nonvisualization of the majority the pancreas. 3. Trace right upper quadrant free fluid. 4. Normal-appearing gallbladder. Common duct was not visible. Assessment and Plan Problem List 1. Pancreatitis, alcoholic, acute Plan Patient is wtih alcholic pancreatitis and large pseudocyst. 2. Leukocytosis, unspecified Plan Has improvement slight this am. 3. Alcohol abuse Status Chronic Onset Date Unknown Plan Discussed quitting drinking overall and AA this am.
--- NOTE | 2016-06-29 09:15 | NUR ---
RECEIVED PT IN BED, AWAKE, ALERT, ORIENTED, COHERENT, COOPERATIVE. V/S TAKEN AND RECORDED. ASSESSMENT DONE. PT COMPLAINT OF ABDOMINAL PAIN. DENIES N/V AT THIS TIME. SEEN AND EXAMINED BY DR ESPINOZA, WITH ORDERS MADE AND CARRIED OUT. PLAN OF CARE INFORMED PT, SHYAM.
[2016-06-29 09:56] VITALS: BP 140/94
[2016-06-29 13:41] VITALS: BP 137/87
--- NOTE | 2016-06-29 13:47 | NUR ---
NUTRITION NOTE: Pt admitted with dx/o pancreatitis, leukocytosis. Pt with hx/o hyperlipidemia, depression, ETOH. Pt is NPO at this time. Pt is not currently scoring on ETOH protocol per nsg. Advance diet when medically appropriate. RD to follow up with complete assessment per protocol.
--- NOTE | 2016-06-29 16:16 | NUR ---
PT IS A&OX3, LS CTA AND BT HYPOACTIVE. C/O ABD PAIN AT 3/10, BUT TOLERATING OK PER PT. NO NAUSEA. VSS. PT SEEMS DOWN EMOTIONALLY, THIS RN TALKED W/ PT FOR A BIT FOR COMFORT. SEEMS TO BE IN BETTER SPIRITS AT THE MOMENT. RESTING W/ CALL LIGHT IN REACH.
[2016-06-29 18:10] VITALS: BP 139/94
[2016-06-29 23:37] VITALS: BP 152/83
[2016-06-30 02:28] VITALS: BP 139/78
--- NOTE | 2016-06-30 03:53 | NUR ---
PT. IS RESTING IN BED AT THIS TIME, STATES HE HAD A BAD DREAM. THIS RN TALKED WITH HIM AND HE IS CALM AND COOPERATIVE AT THIS TIME. DECLINES THE NEED FOR PAIN MEDICATION. NPO. DISCUSSED PLAN OF CARE WITH PT. DENIES NAUSEA. ASSESSMENT COMPLETED. WCTM.
[2016-06-30 07:19] VITALS: BP 132/77
--- NOTE | 2016-06-30 07:30 | NUR ---
DR ALEXIS GARCIAFED REGARDIGN K LEVEL IS 3.2. HE WILL ORDER IV WITH K HE STATES.
--- NOTE | 2016-06-30 07:43 | Progress Note ---
Subjective General Patient states he is feeling much better. Is hoping to go home soon. Has been with less pain and has started passing gas. Feels well hydrated this am. Peeing great. No fevers, no n/v Physical Exam Vital Signs / I&Os Vital Signs Date Time Temp Pulse Resp B/P Pulse O2 O2 Flow FiO2 Ox Delivery Rate 06/30 0719 98.2 91 18 132/77 95 Room Air 0.0 06/30 0354 0.0 06/30 0228 98.2 92 18 139/78 95 Room Air 06/29 2337 98.2 102 18 152/83 98 Room Air 0.0 06/29 1810 98.4 98 18 139/94 94 Room Air 06/29 1613 Room Air 06/29 1341 99.7 98 18 137/87 94 06/29 0956 99.1 101 18 140/94 94 Room Air 0.0 06/29 0915 Room Air 0.0 I&O 06/30 0000 06/29 1600 06/29 0800 Intake Total 0 2572 1179 Output Total 1500 850 200 Balance -1500 1722 979 General Appearance Alert Lungs Clear to auscultation, Normal air movement Cardiovascular Regular rate and rhythm, No murmurs, gallops, rubs Abdomen Soft, minimal to no tenderness Extremities Normal exam LAB Results Laboratory Tests 06/30 06/29 06/29 0545 0757 0757 Chemistry Plasma Sodium (136 - 145 mmol/L) 137 138 Plasma Potassium (3.5 - 5.1 mmol/L) 3.2 3.5 Plasma Chloride (98 - 107 mmol/L) 102 103 CO2 (Enzymatic) (21 - 32 mmol/L) 28 30 BUN (7 - 18 mg/dL) 7 12 Creatinine (0.6 - 1.3 mg/dL) 0.6 0.8 Est GFR ( Amer) (mL/min) >60 >60 Est GFR (Non-Af Amer) (mL/min) >60 >60 Glucose (70 - 110 mg/dL) 78 104 Plasma Calcium (8.5 - 10.1 mg/dL) 8.1 8.2 Total Bilirubin (0.0 - 1.0 mg/dL) 0.9 0.9 AST (15 - 37 U/L) 18 21 ALT (12 - 78 U/L) 25 34 Alkaline Phosphatase (46 - 116 U/L) 50 52 Total Protein (6.4 - 8.2 g/dL) 6.0 6.3 Albumin (3.3 - 5.0 g/dL) 2.3 2.6 Triglycerides (30 - 200 mg/dL) 217 Cholesterol (140 - 200 mg/dL) 112 LDL Cholesterol, Calc (mg/dL) 16 HDL Cholesterol (32 - 96 mg/dL) 53 LDL/HDL Ratio 0.3 Cholesterol/HDL Ratio 2.1 Coronary Risk Interp (0.4 - 1.0) 0.4 Amylase (25 - 115 U/L) 129 Lipase (73 - 393 U/L) 682 1443 Hematology WBC (4.5 - 11.5 K/uL) 10.8 14.3 RBC (4.50 - 5.90 M/uL) 3.80 4.36 Hgb (13.5 - 17.5 gm/dL) 11.4 12.9 Hct (41.0 - 53.0 %) 33.0 37.7 MCV (80 - 100 fL) 87 87 MCH (26 - 34 pg) 30 30 RDW (11.6 - 14.8 %) 13.2 13.5 Neut % (Auto) (50 - 75 %) 79.8 87.8 Lymph % (Auto) (25 - 40 %) 12.8 8.2 Navarro % (Auto) (3 - 14 %) 4.3 3.4 Eos % (Auto) (0 - 4 %) 2.8 0.5 Baso % (Auto) (0 - 2 %) 0.3 0.1 Plt Count, EDTA (150 - 400 K/uL) 157 194 PUBS MCHC (31 - 37 g/dL) 35 34 Assessment and Plan Problem List 1. Pancreatitis, alcoholic, acute Plan Patient is doing better at this time. No sig pain and lipase much improved would like to try diet today. 2. Leukocytosis, unspecified Plan improved 3. Alcohol abuse Status Chronic Onset Date Unknown Plan Going to be a non drinker.
--- NOTE | 2016-06-30 08:35 | NUR ---
RECEIVED PT INROOM 202, IN BED, AWAKE ,ALERT, ORIENTED, COHERENT, COOPERATIVE. V/S TAKEN AND RECORDED. ASSESSMENT DONE. PT DENIES PAIN, NASUEA AND VOMITING AT THIS TIME. THEN TRASFERRED PT TO RM 203B, EXPLAINED TO PT AND UNDERSTOOD. SEEN AND EXAMINED BY DR ESPINOZA EARLIER, WITH ORDERS MADE AND CARRIED OUT. PLAN OF CARE INFORMED PT. PT WILL START ON CLEAR LIQUID DIET TODAY. INSTRUC PT TO AMBULATE IN THE HALLS. PT UNDERSTOOD. NEEDS ATTENDED.
[2016-06-30 11:18] VITALS: BP 125/76
[2016-06-30 14:48] VITALS: BP 135/90
--- NOTE | 2016-06-30 17:15 | NUR ---
PT IS A&OX3, LS CTA AND BT ACTIVE. NO C/O PAIN OR NAUSEA. PT STATED HE HAS SOME "GURGLING IN MY STOMACH." BUT NO C/O PAIN. AMBUALTING IND IN ROOM. SCD'S ON WHILE IN BED. RESTING W/ CALL LIGHT IN REACH.
[2016-06-30 17:44] VITALS: BP 118/76
[2016-06-30 22:40] VITALS: BP 130/86
--- NOTE | 2016-06-30 23:56 | NUR ---
RESTING IN BED, STATES ABDOMINAL PAIN STILL 7/10 AFTER MEDS, DENIES NAUSEA AT THIS TIME. PAIN MEDS INEFFFECTIVE AT THIS TIME, MD NOTIFIED.
[2016-07-01] VITALS (7 sets, daily range): BP systolic 128–146; BP diastolic 82–97
--- NOTE | 2016-07-01 07:16 | Progress Note ---
Subjective General Brief Hx: The patient is a 35-year-old white male with a significant past medical history of hyperlipidemia, depression, who presented to [facility] emergency department on the day of admission secondary to complaints of abdominal pain, nausea, and vomiting of 2 days' duration. Admitted with pancreatitis and pancreatic pseudocyst. He improved and labs improved. Yesterday states he was tolerating the diet well but stated he had adominal pain as he wanted to sleep. I made him NPO and gave benadryl and toradol for his pain. He feels much better. Lipase up some this am. No cp,sob, and abd pain better. Physical Exam Vital Signs / I&Os Vital Signs Date Time Temp Pulse Resp B/P Pulse O2 O2 Flow FiO2 Ox Delivery Rate 07/01 0201 99.3 65 18 131/88 95 Room Air 06/30 2240 98.8 80 18 130/86 96 Room Air 06/30 1744 98.4 85 18 118/76 99 06/30 1711 Room Air 06/30 1448 99.1 93 18 135/90 97 06/30 1118 98.6 84 18 125/76 95 Room Air 06/30 0825 Room Air 06/30 0719 98.2 91 18 132/77 95 Room Air 0.0 I&O 07/01 0000 06/30 1600 06/30 0800 Intake Total 1751 2512 3560 Output Total 500 1900 1000 Balance 1628 107 9274 General Appearance Alert, Cooperative Lungs Clear to auscultation, Normal air movement Cardiovascular Regular rate and rhythm, No murmurs, gallops, rubs Abdomen Soft, No tenderness Extremities No edema LAB Results Laboratory Tests 07/01 0550 Chemistry Plasma Sodium (136 - 145 mmol/L) 142 Plasma Potassium (3.5 - 5.1 mmol/L) 3.4 Plasma Chloride (98 - 107 mmol/L) 105 CO2 (Enzymatic) (21 - 32 mmol/L) 31 BUN (7 - 18 mg/dL) 5 Creatinine (0.6 - 1.3 mg/dL) 0.6 Est GFR ( Amer) (mL/min) >60 Est GFR (Non-Af Amer) (mL/min) >60 Glucose (70 - 110 mg/dL) 113 Plasma Calcium (8.5 - 10.1 mg/dL) 8.6 Total Bilirubin (0.0 - 1.0 mg/dL) 0.7 AST (15 - 37 U/L) 19 ALT (12 - 78 U/L) 19 Alkaline Phosphatase (46 - 116 U/L) 48 Total Protein (6.4 - 8.2 g/dL) 6.1 Albumin (3.3 - 5.0 g/dL) 2.2 Lipase (73 - 393 U/L) 2123 Hematology WBC (4.5 - 11.5 K/uL) 5.9 RBC (4.50 - 5.90 M/uL) 3.48 Hgb (13.5 - 17.5 gm/dL) 10.4 Hct (41.0 - 53.0 %) 30.3 MCV (80 - 100 fL) 87 MCH (26 - 34 pg) 30 RDW (11.6 - 14.8 %) 13.6 Neut % (Auto) (50 - 75 %) 60.0 Lymph % (Auto) (25 - 40 %) 25.1 [place] % (Auto) (3 - 14 %) 8.4 Eos % (Auto) (0 - 4 %) 6.1 Baso % (Auto) (0 - 2 %) 0.4 Plt Count, EDTA (150 - 400 K/uL) 171 PUBS MCHC (31 - 37 g/dL) 34 Assessment and Plan Problem List 1. Pancreatitis, alcoholic, acute Plan Patient is now NPO again with bump in lipase. Clinically much improved. Make NPO today re check on lipase in am. 2. Pancreatic pseudocyst Plan Will need to have ERCP and GI referral for 6 week f/u post hospitalization. Also , repeat CT scan abd in 6 weeks.
--- NOTE | 2016-07-01 14:42 | NUR ---
PT AND SO STATED THEY ARE CONFUSED ABOUT THE MEDICATION HE IS ABLE TO TAKE AT BEDTIME TO ASSIST WITH SLEEP (BENADRYL), WELL FOR PAIN MGMT. CONFIRMED IN EMAR PT HAS 25MG IV BENADRYL PRN, WELL TORRODOL FOR PAIN. PT CURIOUS ABOUT LABS, REVIEWED WITH PT. PT STATED HE FEELS WELL AND WOULD LIKE TO GO HOME AND COME BACK IN THE AM FOR LAB DRAW. REVIEWED IV FLUID PT IS GETTING WHILE INPATIENT STATUS AND THE BENENFIT OF PT REMAINING IN OUR CARE. DR CONTACTED PER PT REQUEST - DR IS AVAIALBLE TO COME SPEAK WITH PT THIS EVENING. PT AGREED TO STAY.
--- NOTE | 2016-07-01 16:42 | NUR ---
gave ordered does, wasted 25mg of benadryl.
--- NOTE | 2016-07-01 17:16 | NUR ---
WAS PASSED OFF IN REPORT DR IS AWARE OF CURRENT LAB VALUES.
--- NOTE | 2016-07-01 21:57 | NUR ---
SDCS ON FOR DVT PREVETION. HAS BEEN UP AMBULATING THROUGH [address] TODAY. IS RESTING IN BED NOW. CALL LIGHT WITHIN REACH.
--- NOTE | 2016-07-01 22:13 | NUR ---
CALLED DR. ZAZUETA REGARDING PATIETNS MOST CURRENT LAB VALUES.DR ZAZUETA IS AWARE.
--- NOTE | 2016-07-01 22:44 | NUR ---
WASTED PERCOCET WITH BERTHA NUGENT IN [place] [employer].
--- NOTE | 2016-07-02 00:23 | NUR ---
C/O HEADACHE, ADMINISTERED TORADOL IV. DENIES ABDOMINAL PAIN. REVIEWED PLAN OF CARE WITH PT. AND REASON FOR NPO. WCTM.
[2016-07-02 03:26] VITALS: BP 128/80
[2016-07-02 06:41] VITALS: BP 134/86
--- NOTE | 2016-07-02 09:14 | NUR ---
PT REQUESTED TO SPEAK WITH THIS AM. RELAYED MSG TO DR BARR - WILL BE SURE TO ANSWER ALL QUESTIONS WITH PT DURING ROUNDS. PT AWARE - STATED "OK".
[2016-07-02 12:11] VITALS: BP 136/92
--- NOTE | 2016-07-02 12:16 | Progress Note ---
Subjective General The patient is a 35-year-old white male with a significant past medical history of hyperlipidemia, depression, who presented to [facility] emergency department on the day of admission secondary to complaints of abdominal pain, nausea, and vomiting of 2 days' duration. Admitted with pancreatitis and pancreatic pseudocyst. He improved and labs improved. Patient is ambulating. On clear liquids. No nausea. vomiting or abdominal pain wants to go home Physical Exam Vital Signs / I&Os Vital Signs Date Time Temp Pulse Resp B/P Pulse O2 O2 Flow FiO2 Ox Delivery Rate 07/02 1211 98.2 72 20 136/92 99 Room Air 07/02 0641 98.1 62 20 134/86 95 Room Air 07/02 0326 98.2 60 18 128/80 98 Room Air 07/01 2340 97.7 73 20 138/96 98 Room Air 07/01 1829 98.8 75 18 136/88 99 Room Air 07/01 1619 0.0 07/01 1515 141/97 07/01 1436 98.1 85 18 146/96 99 Room Air I&O 07/02 0000 07/01 1600 07/01 0800 Intake Total 0 1000 Output Total 700 2100 950 Balance -700 -2100 50 General Appearance Alert, Oriented X3, Cooperative, No acute distress Lungs Clear to auscultation Cardiovascular Regular rate and rhythm, Normal S1 and S2, No murmurs, gallops, rubs Abdomen Soft, No tenderness, No guarding, No rebound Extremities No cyanosis, Normal pulses, Pancho's sign negative Neurological No lateralizing signs Assessment and Plan Problem List 1. Pancreatitis, alcoholic, acute Plan d/c home see discharge summary ff up with dr. grewal in 1 week 2. Depression Status Chronic Onset Date Unknown 3. Pancreatic pseudocyst
--- NOTE | 2016-07-02 12:20 | Provider's Discharge Care Plan ---
Problem, Goal, Plan Problem List 1. Pancreatitis, alcoholic, acute Instructions: no alcohol 2. Depression Instructions: hold wellbutrin untiul pancreatitis resolves and lipase levle is normal
--- NOTE | 2016-07-02 12:20 | Provider's Discharge Care Plan ---
Problem, Goal, Plan Problem List 1. Pancreatitis, alcoholic, acute Instructions: no alcohol 2. Depression Instructions: hold wellbutrin untiul pancreatitis resolves and lipase levle is normal
[2016-07-02] MEDS ORDERED: PERCOCET1 TA1 PO (12:21)
--- NOTE | 2016-07-02 12:54 | DISCHARGE SUMMARY ---
ADMIT DATE: 06/28/2016 DISCHARGE DATE: 07/02/2016 ADMITTING DIAGNOSES: 1. Acute alcoholic pancreatitis with pseudocyst. 2. Hyperlipidemia. 3. History of depression. 4. Chronic alcohol use. DISCHARGE DIAGNOSES: 1. Acute alcoholic pancreatitis with pseudocyst. 2. Hyperlipidemia. 3. History of depression. 4. Chronic alcohol use. BRIEF HISTORY: The patient is a 35-year-old male with a history of hyperlipidemia and depression, who presented with complaints of abdominal pain, nausea, vomiting of 2 days' duration. The patient was seen in the ED and was found to have acute pancreatitis felt secondary to alcohol abuse. HOSPITAL COURSE: 1. The patient was admitted and initially kept n.p.o. His abdominal ultrasound showed a 10 cm left upper quadrant cystic structure in the setting of pancreatitis that was suspicious for pseudocyst. His lipase levels were monitored. Initially, his lipase level peaked at 7403. By the time of discharge, his lipase level was down to 832. He was pain free and was tolerating a clear liquid diet. He was advised to maintain a liquid diet for 72 hours, then upgrade to a soft diet. He will need to have a lipase level rechecked with his primary care physician. The patient needs to follow up with his primary care physician in 1 week and he may need to have a Gastroenterology consultation as an outpatient. Advised to stop drinking alcohol. 2. History of depression. He is on Wellbutrin. I advised him to hold his Wellbutrin until the lipase levels resolve, Wellbutrin can sometimes be associated with pancreatitis. 3. Anemia, this might be hemodilutional, his initial hemoglobin was 15.6, hematocrit 45.8. He was probably hemoconcentrated. At time of discharge, his hemoglobin was 10.1 and hematocrit 29.6. No evidence of bleeding was noted. I suggest a repeat CBC as an outpatient. 4. Hypokalemia. The patient was given potassium replacements during his hospital stay. 5. Hyperlipidemia, continue atorvastatin. DISCHARGE INSTRUCTIONS/MEDICATIONS: The patient to follow up with Dr. Arias in 1 week.
[2016-07-02] MEDS ORDERED: ZOFRAN ODT4 MG PO (13:14)
--- NOTE | 2016-07-02 13:20 | NUR ---
PT DC TO HOME WITH S/O VIA PRIVATE VEHICLE. VSS. DENIES PAIN. DISCHARGE INSTRUCTIONS GIVEN WITH ALL QUESTIONS ANSWERED. 2 RX GIVEN TO PT TO FILL. ALL BELONGINGS WITH PT AND S/O.
== END 2016-07-02 13:20 | disposition home or self-care (01) | DRG 282 ==
LOC: ED SRH 00:34 → TRANS SRH 02:51 → ACUTE2 SRH 02:51
PROVIDERS: ADMIT Internal Medicine
DX: K85.20 Alcohol induced acute pancreatitis without necrosis or infection (principal); R11.2 Nausea with vomiting, unspecified; K86.3 Pseudocyst of pancreas; F10.10 Alcohol abuse, uncomplicated; D72.829 Elevated white blood cell count, unspecified; E78.5 Hyperlipidemia, unspecified; F32.9 Major depressive disorder, single episode, unspecified
CPT/HCPCS: 90004; 90074; 90100; 91295; 92235; 92530; 92690; 92760; 92761; 92762; 92763; 92764; 92765; 92766; 92767; 95059; 95061

== ENCOUNTER 2016-08-31 09:20 | Emergency (ER) | payer OTHER ==
[~2016-08-31 09:20] MED LIST: BUPROPION HCL150 M3 PO; FISH OIL + D3 PO; LIPITOR10 MG PO; PERCOCET1 TA1 PO; ZOFRAN ODT4 MG PO; [UNRECOGNIZED DRUG - OTHER] PO
--- NOTE | 2016-08-31 14:38 | ED ORDER SUMMARY ---
..... Patient: OSBALDO BENEDICT OrderSheet [facility] VisitID: [id number] [place] [address] 36y, M Registration Date/Time: 08/31/2016 ORDER SHEET Weight: 86.1 kg (stated) Allergies: No Known Drug Allergy GENERAL ORDERS: Cardiac Panel Stat (09:52 08/31/2016 Karen SALCIDO) (Ack 9:55 PWeiler ER Tech1) (10:00 LWhalen R.N.) Amylase Urgent (:08/31/2016 Karen SALCIDO) (Ack 9:55 PWeiler ER Tech1) (10:00 LWhalen R.N.) Lipase Urgent (:08/31/2016 Karen SALCIDO) (Ack 9:55 PWeiler ER Tech1) (10:00 LWhalen R.N.) Ethyl Alcohol Urgent (:08/31/2016 Karen SALCIDO) (Ack 9:55 PWeiler ER Tech1) (10:00 LWhalen R.N.) Urine Drug Screen Urgent (09:08/31/2016 Karen SALCIDO) (Ack 9:55 PWeiler ER Tech1) (12:30 PWeiler ER Tech1) US Abdomen Limited (Yes) Urgent (12:31 08/31/2016 Karen SALCIDO) (Ack 12:33 PWeiler ER Tech1) (14:00 LWhalen R.N.) MEDICATION ORDERS: GI Cocktail WHITE PO 50 mL (NOW) (12:30 08/31/2016 Karen SALCIDO) (Ack 12:58 Bren R.N.) (13:05 LWhalen R.N.) IV FLUIDS: IV NS : initial bolus 1000 mL (1000 mL/hr), then 500 mL/hr for 2h (NOW); Routine (09:51 08/31/2016 Karen SALCIDO) (10:06 LWhalen R.N.) Zofran IV 4 mg (NOW) (09:52 08/31/2016 Karen SALCIDO) (10:06 LWhalen R.N.) Demerol IV 12.5 mg (NOW) (09:57 08/31/2016 Karen SALCIDO) (10:10 Dano R.N.) Protonix IVP 80mg 80 mg (Mix in NS 20ml over 4min) (09:57 08/31/2016 Karen SALCIDO) (10:11 Dano R.N.) ORDER SHEET NOTES: [Electronically signed by Blair Simmons R.N. (15:08/31/2016)] [Electronically signed by Buster Main MD (20:44 09/01/2016)] [Electronically locked/signed by Blair Simmons R.N. (15:01 08/31/2016)]
--- NOTE | 2016-08-31 14:38 | ED NURSING NOTES ---
Clinical Report - Nurses Located Within [facility] [place] [address] 08/31/2016 9:20 Patient: OSBALDO BENEDICT TRIAGE Triage time 09:34 Aug 31 2016. Acuity: LEVEL 3. Chief Complaint: ABDOMINAL PAIN, NAUSEA, VOMITING and DIARRHEA. ELDA COMA SCORE: [place] Coma Scale: 15- eyes open spontaneously (4); best verbal response- oriented x 4 (5); best motor response- obeys commands (6). --09:39 Blair Simmons R.N. 09:34 08/31/16. BP: 129/90. HR: 76. RR: 18. O2 saturation: 100%. Temp: 98.5 F. Pain level now 5/10. --09:39 Blair Simmons R.N. Weight: 86.1 kg stated. Height/Length: 73 inches Per Patient. BMI: 25. --09:38 Blair Simmons R.N. Medications BuPROPion HCl Oral. Fish Oil + D3 Oral. Lipitor Oral. --09:35 Blair Simmons R.N. Allergies No Known Drug Allergy. --09:35 Blair Simmons R.N. History Arrived by private vehicle. Historian: patient. Onset. (2 days). ( Went on a drinking binge and and stopped drinking two days ago. Is having severe abdominal pain and states has and pancreatitis before and it feels the same.). He has had nausea, vomiting, diarrhea and abdominal pain. No constipation or fever. Last oral intake by patient was today 1 hour ago. Treatment DEAN [employer]UD[employer]: (tums). PAST MEDICAL HX: No history of diabetes mellitus. No history of gastroesophageal reflux disease, peptic ulcer disease or gallstones. Immunizations: up-to-date. SOCIAL HX: Never smoker. Alcohol use; consumes a large amount of beer. No drug use. No recent travel. SELF HARM ASSESSMENT: A self harm assessment was performed. The patient answered "no" to the question "Have you recently felt down, depressed, or hopeless?" and "Do you have thoughts of harming or killing yourself?". FALL RISK ASSESSMENT: Fall risk assessment completed. No fall risk identified. NUTRITIONAL RISK ASSESSMENT: The nutritional risk assessment revealed no deficiencies. FUNCTIONAL ASSESSMENT: Functional assessment: no impairments noted. LEARNING NEEDS ASSESSMENT: The learning needs assessment revealed no barriers. ABUSE ASSESSMENT: Abuse assessment: (yes) The patient was asked "Do you feel safe in your home?". SKIN INTEGRITY ASSESSMENT: Skin integrity risk assessment completed. No skin integrity risk identified. --09:39 Blair Simmons R.N. PROBLEMS: Leukocytosis. Pancreatitis. --09:35 Blair Simmons R.N. ADDITIONAL SURGERIES: Foot . --09:35 Blair Simmons R.N. Interventions ID band on patient. --09:39 Blair Simmons R.N. PHYSICAL ASSESSMENT Ambulatory to room. GENERAL / NEURO / PSYCH: Alert. Oriented X 4. Appears in no acute distress. HEENT: Mucous membranes are pink. RESPIRATORY: Respirations not labored. Breath sounds within normal limits. CVS: Normal sinus rhythm noted. Capillary refill less than 2 seconds. GI / : The patient has had nausea and diarrhea. Abdominal tenderness. SKIN: Skin is warm and dry. --09:40 Blair Simmons R.N. NURSING PROGRESS NOTES The initial plan of care for this patient includes an assessment with efforts to address patient positioning, appropriate ambient lighting and comfortable environmental temperature. Pulse oximeter and NIBP monitor placed on patient. Head of bed elevated 60 degrees. Reassurance given. Call light placed in reach. Side rails up x 1. Bed placed in lowest position. Brakes of bed on. --09:40 Blair Simmons R.N. 09:56 08/31/2016 Site #1 started via IV in the right hand with an 20g angiocath, with aseptic technique and good blood return; one attempt. Blood drawn: rainbow set. Labeled in the presence of the patient and sent to the lab. Saline lock flushed with 10 mL saline. --10:06 Blair Simmons R.N. 10:06 08/31/2016 Started bag #1 1000 mL IV Fluids IV NS (Saline); at 1000 mL/hr over 1 hour(s) via site #1 via IV pump. Allergies verified and confirmed 5 rights. IV patency established. IV site checked: no pain, redness, or swelling. IV flushed thoroughly pre- and post-medication administration. --10:06 Blair Simmons R.N. 10:06 08/31/2016 Zofran (Ondansetron HCl) IVP 4 mg given over 2 minute(s) via site #1. Allergies verified and confirmed 5 rights. IV patency established. IV site checked: no pain, redness, or swelling. IV flushed thoroughly pre- and post-medication administration. --10:06 Blair Simmons R.N. 10:10 08/31/2016 Demerol (Meperidine HCl) IVP 12.5 mg given over 2 minute(s) via site #1. Allergies verified and confirmed 5 rights. IV patency established. IV site checked: no pain, redness, or swelling. IV flushed thoroughly pre- and post-medication administration. --10:10 Blair Simmons R.N. 10:11 08/31/2016 PROTONIX (Pantoprazole Sodium) IVP 80 mg given over 5 minute(s) via site #1. Allergies verified and confirmed 5 rights. IV patency established. IV site checked: no pain, redness, or swelling. IV flushed thoroughly pre- and post-medication administration. --10:11 Blair Simmons R.N. 13:05 08/31/2016 GI COCKTAIL WHITE (Simethicone) PO Oral Suspension 30 mL given. Allergies verified and confirmed 5 rights. --13:05 Blair Simmons R.N. 14:01 08/31/2016 IV Fluids IV NS Discontinued: bag #2 infused. Total amount infused: 1000 mL. IV patency established. IV site checked: no pain, redness, or swelling. IV flushed thoroughly. --14:01 Blair Simmons R.N. 14:35 08/31/2016 Site #1 removed upon discharge. Catheter intact. Pressure dressing applied. --15:00 Blair Simmons R.N. DISPOSITION / DISCHARGE Departure time: 14:50 Memo 12 2016. Condition at departure: improved. No learning barriers present. Discharge instructions provided and reviewed with the patient and spouse. Reviewed warnings. Reviewed medication(s). Treatments reviewed. Reviewed referrals. Patient and spouse verbalized understanding. Written instructions provided in Niuean. The patient was discharged home and accompanied by spouse. He left the Emergency Department ambulatory and via private vehicle. Patient driving. --14:59 Blair Simmons R.N. 14:56 08/31/16. BP: 131/91. HR: 74. RR: 18. O2 saturation: 99%. Temp: 98.6 F. Pain level now 05/29. --14:59 Blair Simmons R.N. Locked/Released at 08/31/2016 15:01 by Blair Simmons R.N.
--- NOTE | 2016-08-31 14:38 | ED ORDER SUMMARY ---
..... Patient: OSBALDO BENEDICT OrderSheet [facility] VisitID: [id number] [place] [address] 36y, M Registration Date/Time: 08/31/2016 ORDER SHEET Weight: 86.1 kg (stated) Allergies: No Known Drug Allergy GENERAL ORDERS: Cardiac Panel Stat (09:52 08/31/2016 Karen SALCIDO) (Ack 9:55 PWeiler ER Tech1) (10:00 LWhalen R.N.) Amylase Urgent (:08/31/2016 Karen SALCIDO) (Ack 9:55 PWeiler ER Tech1) (10:00 LWhalen R.N.) Lipase Urgent (:08/31/2016 Karen SALCIDO) (Ack 9:55 PWeiler ER Tech1) (10:00 LWhalen R.N.) Ethyl Alcohol Urgent (:08/31/2016 Karen SALCIDO) (Ack 9:55 PWeiler ER Tech1) (10:00 LWhalen R.N.) Urine Drug Screen Urgent (09:08/31/2016 Karen SALCIDO) (Ack 9:55 PWeiler ER Tech1) (12:30 PWeiler ER Tech1) US Abdomen Limited (Yes) Urgent (12:31 08/31/2016 Karen SALCIDO) (Ack 12:33 PWeiler ER Tech1) (14:00 LWhalen R.N.) MEDICATION ORDERS: GI Cocktail WHITE PO 50 mL (NOW) (12:30 08/31/2016 Karen SALCIDO) (Ack 12:58 Bren R.N.) (13:05 LWhalen R.N.) IV FLUIDS: IV NS : initial bolus 1000 mL (1000 mL/hr), then 500 mL/hr for 2h (NOW); Routine (09:51 08/31/2016 Karen SALCIDO) (10:06 LWhalen R.N.) Zofran IV 4 mg (NOW) (09:52 08/31/2016 Karen SALCIDO) (10:06 LWhalen R.N.) Demerol IV 12.5 mg (NOW) (09:57 08/31/2016 Karen SALCIDO) (10:10 Dano R.N.) Protonix IVP 80mg 80 mg (Mix in NS 20ml over 4min) (09:57 08/31/2016 Karen SALCIDO) (10:11 Dano R.N.) ORDER SHEET NOTES: [Electronically signed by Bliar Simmons R.N. (15:08/31/2016)] [Electronically signed by Buster Main MD (20:44 09/01/2016)] [Electronically locked/signed by Blair Simmons R.N. (15:01 08/31/2016)]
--- NOTE | 2016-08-31 14:38 | ED CLINICAL REPORT ---
Clinical Report - Physicians/Mid Levels [facility] [address] [place] [address] 08/31/2016 9:20 Patient: OSBALDO BENEDICT Time Seen: 09:51 Memo 12 2016. Arrived- By private vehicle. Historian- patient. CPT: ER phys charges level 4 (#[id number]). HISTORY OF PRESENT ILLNESS Chief Complaint: ABDOMINAL PAIN. At its maximum, severity described as moderate. When seen in the E.D., severity described as moderate. Modifying factors- worsened by movement. Not relieved by anything. It is described as "pain" and well localized and it is described as located in the epigastric area. 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 and is still present. The patient has had nausea, loss of appetite, vomiting and diarrhea. Similar symptoms previously: As bad. Diagnosis: pancreatitis. Recent medical care: Not recently seen/assessed. REVIEW OF SYSTEMS No constipation, black stools, hematemesis, difficulty with urination or pain with urination. No urinary frequency, fever, sore throat, chest pain or difficulty breathing. No cough, joint pain, skin rash, chills or back pain. All systems otherwise negative, except as recorded above. PAST HISTORY See nurses notes. Hyperlipidemia. Pancreatitis. Medications: BuPROPion HCl Oral. Fish Oil + D3 Oral. Lipitor Oral. Allergies: No Known Drug Allergy. SOCIAL HISTORY Never smoker. Heavy alcohol use. Patient is a longstanding alcoholic. No drug use. ADDITIONAL NOTES The nursing notes have been reviewed. PHYSICAL EXAM Vital Signs: 08/31/2016 09:34 BP: 129/90. HR: 76. RR: 18. O2 saturation: 100%. Temp: 98.5 F. Appearance: Alert. Appears to be in pain. Patient in moderate distress. Eyes: Eyes normal inspection. ENT: Pharynx normal. Neck: Normal inspection. CVS: Normal heart rate and rhythm. Heart sounds normal. Pulses normal. Respiratory: No respiratory distress. Breath sounds normal. Chest nontender. Abdomen: Soft. Moderate tenderness in the epigastric area. Abnormal bowel sounds: diminished. Back: Normal inspection. No CVA tenderness. Skin: Skin warm. Normal skin color. No rash. Extremities: No lower extremity edema. Neuro: Oriented X 3. No motor deficit. No sensory deficit. Reflexes normal. LABS, X-RAYS, AND EKG Abdominal Sonogram: (pseudocyst, GB appears normal.). The study was independently viewed by me and interpreted contemporaneously by me. Prior studies were not available for comparison. Laboratory Tests: CBC w Diff: (JOHNNIE: 08/31/2016 09:50) ( MsgRcvd 08/31/2016 10:14) Final results Test Result Flag Units (Reference) WHITE BLOOD COUNT 6.2 K/uL (4.5-11.5) RED BLOOD COUNT 4.98 M/uL (4.50-5.90) HEMOGLOBIN 14.5 gm/dL (13.5-17.5) HEMATOCRIT 42.2 % (41.0-53.0) MEAN CELL VOLUME 85 fL (80-100) MEAN CORPUSCULAR HGB 29 pg (26-34) MEAN CORPUSCULAR HGB CONC 34 g/dL (31-37) RED CELL DISTRIBUTION WIDTH 13.3 % (11.6-14.8) PLATELET COUNT 243 K/uL (150-400) NEUTROPHIL % 68.1 % (50-75) LYMPH % 20.9 L % (25-40) MONO % 7.9 % (3-14) EOSINOPHIL % 2.6 % (0-4) BASOPHIL % 0.5 % (0-2) Urine Drug Screen: (JOHNNIE: 08/31/2016 11:57) ( MsgRcvd 08/31/2016 12:20) Final results Test Result Flag Units (Reference) AMPHETAMINE/METHAMPHETAMINE NEGATIVE (NEGATIVE) BARBITURATE NEGATIVE (NEGATIVE) BENZODIAZEPINE NEGATIVE (NEGATIVE) CANNABINOID NEGATIVE (NEGATIVE) COCAINE NEGATIVE (NEGATIVE) ECSTASY POSITIVE H (NEGATIVE) METHADONE NEGATIVE (NEGATIVE) OPIATE NEGATIVE (NEGATIVE) The urine drug screen is a qualitative screening test fordrug overdose and abuse. All screen results should beconsidered as presumptive.Drugs screened for are as follows:BenzodiazepinesCocaineAmphetamines/MetamphetaminesTHC (Tetrahydrocannabinol)OpiatesBarbituratesEcstasyMethadonePositive results are unconfirmed. For confirmation, notifythe lab for the specimen to be sent to the reference lab.All confirmations must be performed by a differentmethodology.The ingestion of natural herbal and plant productscontaining Ephedra/Ephedra metabolites can produce in urineone or more substances capable of cross reacting withamphetamine/methamphetamine immunoassays. These testsprovide a preliminary result only. A more specificalternative chemical method must be used to obtain aconfirmed analytical result. CHEM 13 PANEL: (JOHNNIE: 08/31/2016 09:50) ( MsgRcvd 08/31/2016 10:30) Final results Test Result Flag Units (Reference) GLUCOSE 112 H mg/dL (70-110) BUN 16 mg/dL (7-18) CREATININE 0.8 mg/dL (0.6-1.3) Estimated GFR >60 mL/min Estimated GFR- >60 mL/min Note: Persistent reduction over 3 months in eGFR<60 mL/min/1.73 m2 defines CKD. Patients with eGFR values>=60 mL/min/1.73 m2 may also have CKD if evidence ofpersistent proteinuria. Additional information may be foundat www.kidney.org. SODIUM 143 mmol/L (136-145) POTASSIUM 3.7 mmol/L (3.5-5.1) CHLORIDE 105 mmol/L (98-107) CARBON DIOXIDE 28 mmol/L (21-32) CALCIUM 9.2 mg/dL (8.5-10.1) TOTAL PROTEIN 8.2 g/dL (6.4-8.2) ALBUMIN 4.1 g/dL (3.3-5.0) BILIRUBIN, TOTAL 2.0 H mg/dL (0.0-1.0) ALKALINE PHOSPHATASE 85 U/L (46-116) AST (SGOT) 60 H U/L (15-37) ALT (SGPT) 125 H U/L (12-78) MAGNESIUM 1.7 L mg/dL (1.8-2.4) LIPASE 85 U/L (73-393) AMYLASE 25 U/L (25-115) CPK 177 U/L (24-260) TROPONIN I <0.05 ng/mL (0.00-1.5) TROPONIN REFERENCE RANGE:<0.1 NEGATIVE0.1-1.5 INDETERMINANT>1.5 POSITIVE ETHYL ALCOHOL <3 L mg/dL (3-10) . PROGRESS AND PROCEDURES Course of Care: IV NS Zofran 4 mg IV White GI cocktail: better Protonix 80 mg IV Patient is stable. Symptoms better. Patient/family counseled. Disposition: Discharged. Condition: stable. CLINICAL IMPRESSION Acute alcoholic gastritis. No hemorrhagic gastritis. Substance abuse problems: abuse of alcohol. Substance dependence problems: dependence on alcohol. INSTRUCTIONS Take clear liquids only (frequent sips) for the next 12 hours until better. Advance diet as tolerated. No alcohol. Avoid alcohol and NSAIDS. Examples of NSAIDS include aspirin, ibuprofen (Advil) and naproxen (Aleve). Avoid spicy foods. (No caffeine , no NSAIDS Get to AA and alcohol rehab.). Warnings: Further evaluation is necessary. GENERAL WARNINGS: Return or contact your physician immediately if your condition worsens or changes unexpectedly, if not improving as expected, or if other problems arise. Prescription Medications: Hydrocodone/APAP 5mg/325mg: take 1 to 2 orally every 6 hours as needed for pain. Dispense fifteen (15). No refills. Zofran (orally disintegrating tablets) 4 mg: take 1 orally every 4 hours as needed for nausea. Dispense fifteen (15). No refill. Carafate 1 gm tablets: take 1 orally four times daily (before meals and at bedtime). Dispense forty (40). No refills. Prilosec 40 mg capsules: take 1 capsule orally for 10 days. Dispense ten (10). No refill. Substitution is permissible. Follow-up: Return to the emergency department If getting worse. Follow up with your doctor in seven days. Call for an appointment. Understanding of the discharge instructions verbalized by patient. (Electronically signed by Buster Main MD 09/01/2016 20:44)
--- NOTE | 2016-08-31 16:25 | DIAGNOSTIC IMAGING REPORT ---
PROCEDURE: US ABDOMEN ULTRASOUND-LIMITED INDICATION: RUQ PAIN TECHNIQUE: Muir scale and color Doppler sonographic images of the abdomen were obtained without comparison. COMPARISON: Abdominal ultrasound 06/28/2016 FINDINGS: In the left upper quadrant of the abdomen, there is an irregular cystic structure adjacent to the spleen measuring about 7.6 x 6.6 x 7.9 cm The liver is normal in size, contour, and echotexture. No mass or intrahepatic biliary dilatation. The gallbladder is distended but appears normal without stones or sludge. The wall is normal thickness measuring 2.6 mm No pericholecystic fluid or Sanchez sign. The extrahepatic common duct measures 2.7 mm The body of the pancreas was not seen secondary to bowel gas. The right kidney measures 13.6 cm in length. IMPRESSION: 1. 7.9 cm left upper quadrant pseudocyst. Previously measured 10.6 cm 2. Nonvisualization of the majority the pancreas. 3. Normal-appearing gallbladder.
--- NOTE | 2016-09-01 20:44 | ED MED RECONCILIATION SUMMARY ---
Patient: OSBALDO BENEDICT Medication Reconciliation Report [facility] VisitID: [id number] [address] [place] [address] 36y, M Registration Date/Time: 08/31/2016 Weight: 86.1 kg Height/Length: 73 in. BMI: 25.0 ALLERGIES: No Known Drug Allergy The patient's Home Medications are listed below: THE FOLLOWING MEDICATIONS NEED TO BE RECONCILED: BuPROPion HCl Oral Fish Oil + D3 Oral Lipitor Oral The source(s) of the original Home Medication information: Not obtained. The following Medications were given to the patient in the Emergency Department: IV NS IV Fluids bolus 0, then 1000 mL/hr, administered: 08/31/2016 10:06:00 AM Zofran [IVP] IVP 4 mg, administered: 08/31/2016 10:06:00 AM Demerol [IVP] IVP 12.5 mg, administered: 08/31/2016 10:10:00 AM PROTONIX [IVP] IVP 80 mg, administered: 08/31/2016 10:11:00 AM GI COCKTAIL WHITE [PO] PO 30 mL, administered: 08/31/2016 1:05:00 PM The following Medications were prescribed to the patient: Hydrocodone/APAP 5mg/325mg: take 1 to 2 orally every 6 hours as needed for pain. Dispense fifteen (15). No refills. -- Buster Main MD Zofran (orally disintegrating tablets) 4 mg: take 1 orally every 4 hours as needed for nausea. Dispense fifteen (15). No refill. -- Buster Main MD Carafate 1 gm tablets: take 1 orally four times daily (before meals and at bedtime). Dispense forty (40). No refills. -- Buster Main MD Prilosec 40 mg capsules: take 1 capsule orally for 10 days. Dispense ten (10). No refill. Substitution is permissible. -- Buster Main MD
--- NOTE | 2016-09-01 20:44 | ED MAR SUMMARY ---
..... Medication Administration Record [facility] [address] [place] [address] Patient: OSBALDO BENEDICT Visit ID: [id number] 36y, M Weight: 86.1 kg Height/Length: 73 in BMI: 25 ALLERGIES: No Known Drug Allergy Start 10:08/31/2016 Blair Simmons R.N., Stop 14:01 08/31/2016 Blair Simmons R.N. Medication Administered: IV NS (SALINE), Dose: IV Fluids over 1 hour(s), Rate: 1000 mL/hr, Dispensed: 1000 mL bag, Site: #1 right hand. Medication Ordered: IV NS : initial bolus 1000 mL (1000 mL/hr), then 500 mL/hr for 2h (NOW); Routine. Given 10:08/31/2016 Blair Simmons R.N. Medication Administered: ZOFRAN [IVP] (ONDANSETRON HCL), Dose: 4 mg IVP over 2 minute(s), Site: #1 right hand. Medication Ordered: Zofran IV 4 mg (NOW). Given 10:08/31/2016 Blair Simmons R.N. Medication Administered: DEMEROL [IVP] (MEPERIDINE HCL), Dose: 12.5 mg IVP over 2 minute(s), Site: #1 right hand. Medication Ordered: Demerol IV 12.5 mg (NOW). Given 10:08/31/2016 Blair Simmons R.N. Medication Administered: PROTONIX [IVP] (PANTOPRAZOLE SODIUM), Dose: 80 mg IVP over 5 minute(s), Site: #1 right hand. Medication Ordered: Protonix IVP 80mg 80 mg (Mix in NS 20ml over 4min). Given 13:05 08/31/2016 Blair Simmons R.N. Medication Administered: GI COCKTAIL WHITE [PO] (SIMETHICONE), Dose: 30 mL Oral Suspension PO. Medication Ordered: GI Cocktail WHITE PO 50 mL (NOW).
--- NOTE | 2016-09-01 20:44 | ED MED RECONCILIATION SUMMARY ---
Patient: OSBALDO BENEDICT Medication Reconciliation Report [facility] VisitID: [id number] [address] [place] [address] 36y, M Registration Date/Time: 08/31/2016 Weight: 86.1 kg Height/Length: 73 in. BMI: 25.0 ALLERGIES: No Known Drug Allergy The patient's Home Medications are listed below: THE FOLLOWING MEDICATIONS NEED TO BE RECONCILED: BuPROPion HCl Oral Fish Oil + D3 Oral Lipitor Oral The source(s) of the original Home Medication information: Not obtained. The following Medications were given to the patient in the Emergency Department: IV NS IV Fluids bolus 0, then 1000 mL/hr, administered: 08/31/2016 10:06:00 AM Zofran [IVP] IVP 4 mg, administered: 08/31/2016 10:06:00 AM Demerol [IVP] IVP 12.5 mg, administered: 08/31/2016 10:10:00 AM PROTONIX [IVP] IVP 80 mg, administered: 08/31/2016 10:11:00 AM GI COCKTAIL WHITE [PO] PO 30 mL, administered: 08/31/2016 1:05:00 PM The following Medications were prescribed to the patient: Hydrocodone/APAP 5mg/325mg: take 1 to 2 orally every 6 hours as needed for pain. Dispense fifteen (15). No refills. -- Buster aMin MD Zofran (orally disintegrating tablets) 4 mg: take 1 orally every 4 hours as needed for nausea. Dispense fifteen (15). No refill. -- Buster Main MD Carafate 1 gm tablets: take 1 orally four times daily (before meals and at bedtime). Dispense forty (40). No refills. -- Buster Main MD Prilosec 40 mg capsules: take 1 capsule orally for 10 days. Dispense ten (10). No refill. Substitution is permissible. -- Buster Main MD
--- NOTE | 2016-09-01 20:44 | ED MAR SUMMARY ---
..... Medication Administration Record [facility] [address] [place] [address] Patient: OSBALDO BENEDICT Visit ID: [id number] 36y, M Weight: 86.1 kg Height/Length: 73 in BMI: 25 ALLERGIES: No Known Drug Allergy Start 10:08/31/2016 Blair Simmons R.N., Stop 14:01 08/31/2016 Blair Simmons R.N. Medication Administered: IV NS (SALINE), Dose: IV Fluids over 1 hour(s), Rate: 1000 mL/hr, Dispensed: 1000 mL bag, Site: #1 right hand. Medication Ordered: IV NS : initial bolus 1000 mL (1000 mL/hr), then 500 mL/hr for 2h (NOW); Routine. Given 10:08/31/2016 Blair Simmons R.N. Medication Administered: ZOFRAN [IVP] (ONDANSETRON HCL), Dose: 4 mg IVP over 2 minute(s), Site: #1 right hand. Medication Ordered: Zofran IV 4 mg (NOW). Given 10:08/31/2016 Blair Simmons R.N. Medication Administered: DEMEROL [IVP] (MEPERIDINE HCL), Dose: 12.5 mg IVP over 2 minute(s), Site: #1 right hand. Medication Ordered: Demerol IV 12.5 mg (NOW). Given 10:08/31/2016 Blair Simmons R.N. Medication Administered: PROTONIX [IVP] (PANTOPRAZOLE SODIUM), Dose: 80 mg IVP over 5 minute(s), Site: #1 right hand. Medication Ordered: Protonix IVP 80mg 80 mg (Mix in NS 20ml over 4min). Given 13:05 08/31/2016 Blair Simmons R.N. Medication Administered: GI COCKTAIL WHITE [PO] (SIMETHICONE), Dose: 30 mL Oral Suspension PO. Medication Ordered: GI Cocktail WHITE PO 50 mL (NOW).
--- NOTE | 2016-09-01 20:44 | ED DISCHARGE INSTRUCTIONS ---
Patient: OSBALDO BENEDICT General Instructions [facility] VisitID: [id number] [place] [address] 36y, M Registration Date/Time: 08/31/2016 Acute alcoholic gastritis. No hemorrhagic gastritis. Substance abuse problems: abuse of alcohol. Substance dependence problems: dependence on alcohol. INSTRUCTIONS Take clear liquids only (frequent sips) for the next 12 hours until better. Advance diet as tolerated. No alcohol. Avoid alcohol and NSAIDS. Examples of NSAIDS include aspirin, ibuprofen (Advil) and naproxen (Aleve). Avoid spicy foods. (No caffeine , no NSAIDS Get to AA and alcohol rehab.). Warnings: Further evaluation is necessary. GENERAL WARNINGS: Return or contact your physician immediately if your condition worsens or changes unexpectedly, if not improving as expected, or if other problems arise. Prescription Medications: Hydrocodone/APAP 5mg/325mg: take 1 to 2 orally every 6 hours as needed for pain. Dispense fifteen (15). No refills. Zofran (orally disintegrating tablets) 4 mg: take 1 orally every 4 hours as needed for nausea. Dispense fifteen (15). No refill. Carafate 1 gm tablets: take 1 orally four times daily (before meals and at bedtime). Dispense forty (40). No refills. Prilosec 40 mg capsules: take 1 capsule orally for 10 days. Dispense ten (10). No refill. Substitution is permissible. Follow-up: Return to the emergency department If getting worse. Follow up with your doctor in seven days. Call for an appointment. Understanding of the discharge instructions verbalized by patient. ADDITIONAL INFORMATION Gastritis (Adult) Gastritis is an irritation of the stomach lining. It can be acute (recent) or chronic (lasting a long time). Gastritis can be caused by overuse of alcohol or anti-inflammatory medications (such as aspirin, ibuprofen, or prednisone). H pyloriinfection can also cause chronic gastritis. Gastritis can cause a dull ache or burning pain in the upper abdomen. Other symptoms include nausea, vomiting, loss of appetite, and belching or bloating. Blood in the vomit or stools (red or black) is a sign of bleeding in the stomach. This requires immediate medical attention. Tests for H pyloriare used to screen for bacterial infection. If no infection is found, gastritis can be treated by stopping the cause and treating with antacids plus an acid misael medication. If H pylori infection is found, antibiotics will also be prescribed. Persons 55 years and older may undergo other tests before treatment is started. Two common tests are used to evaluate your symptoms. An upper GI series is an x-ray taken after you drink a chalky liquid called barium. This coats the stomach and allows the doctor to view any problems in the stomach on the x-ray. Another test is called endoscopy, during which a long thin tube called an endoscope is passed down your throat to the stomach. A camera at the end of the scope allows the doctor to view inside the stomach to check the cause of your symptoms. Home Care: Take the prescribed acid misael medication for the full course of treatment even if you begin to feel better sooner. This medication can take up to several days to fully control your symptoms. If you cant afford the prescribed medication, you can try mqsn-rcy-mhhrbek acid blockers, such as Pepcid AC, Tagamet, Zantac, or Aciphex. If these do not relieve your symptoms, a stronger acid-misael can be tried, such as Prilosec OTC. If you have been prescribed an antibiotic to treat H pyloriinfection, finish the full course of medication. Do so even if you begin to feel better sooner. If you stop the medication too soon, the infection can return and be harder to treat. You can use antacids, such as Tums, Rolaids, Mylanta, or Maalox, for pain. This will be useful the first few days after starting acid blockers when the blockers havent started working yet. Follow the directions on the label. Liquid antacids may work better than tablets. Note that antacids can interfere with absorption of certain medications. Specifically, do not take Tagamet (cimetidine), Zantac (ranitidine), or Carafate (sucralfate) within 1 hour of taking an antacid. Talk with your pharmacist if you have any questions. Symptoms of gastritis can be worsened by certain foods. Limit or avoid fatty, fried, and spicy foods, as well as coffee, chocolate, mint, and foods with high acid content such as tomatoes and citrus fruit and juices (orange, grapefruit, lemon). Avoid alcohol, caffeine, and tobacco, which can delay healing. Avoid aspirin and anti-inflammatory medications such as ibuprofen (Advil, Motrin) and naproxen (Naprosyn, Aleve). Acetaminophen (Tylenol) is safe to use. Do not take more than the amount listed on the label. Follow Up with your doctor, or as advised by our staff. Further testing may be needed. If you do not improve over the next 4 days, contact your doctor. If you had an x-ray, CT scan, or ECG (electrocardiogram), it will be reviewed by a specialist. Youll be notified of any new findings that affect your care. Get Prompt Medical Attention if any of the following occur: Stomach pain gets worse or moves to the lower right abdomen (appendix area) Chest pain appears or gets worse, or spreads to the back, neck, shoulder, or arm Frequent vomiting (cant keep down liquids) Blood in the stool or vomit (red or black in color) Feeling weak or dizzy, fainting, or trouble breathing Fever of 100.4F (38C) or higher, or as directed by your healthcare provider Gastritis Versus Ulcer (No Antibiotic Tx) The symptoms of gastritis and peptic ulcer are very similar. Both can cause a dull ache or burning pain in the upper abdomen. Other symptoms include nausea, vomiting, loss of appetite, and belching or bloating. Blood in the vomit or stools (red or black) is a sign of bleeding in the stomach. This requires immediate medical attention. A Peptic Ulcer is an open sore in the lining of the stomach or duodenum (upper intestine). The most common cause of peptic ulcer disease is a bacterial infection (H pylori) in the stomach. Another common cause is taking anti-inflammatory medications (such as ibuprofen, prednisone, and aspirin). Gastritis is an irritation of the stomach lining. It can be acute (recent) or chronic (lasting a long time). Gastritis can be caused by overuse of alcohol or anti-inflammatory medications (such as aspirin, ibuprofen, prednisone). H pyloriinfection can also cause chronic gastritis. Tests for H pyloriare used to screen for bacterial infection. If no infection is found, ulcer and gastritis can be treated by stopping the cause, such as anti-inflammatory medications, alcohol, caffeine, and tobacco, and treating with antacids plus an acid misael medication. If H pylori infection is found, antibiotics will be prescribed along with an acid misael. Persons 55 years and older may undergo other tests before treatment is started. Two common tests are used to evaluate your symptoms. An upper GI series is an x-ray taken after you drink a chalky liquid called barium. This coats the stomach and allows an ulcer to show up on the x-ray. Another test is called endoscopy during which a long thin tube called an endoscope is passed down your throat to the stomach. A camera at the end of the scope allows the doctor to view inside the stomach to check the cause of your symptoms. Home Care: Take the prescribed acid misael medication for the full course of treatment even if you begin to feel better sooner. This medication can take up to several days to fully control your symptoms. If you cant afford the prescribed medication, you can try xhbq-ajd-uedowqz acid blockers, such as Pepcid AC, Tagamet, Zantac, or Aciphex. If these do not relieve your symptoms, a stronger acid-misael can be tried, such as Prilosec OTC. If you have been prescribed an antibiotic to treat H pyloriinfection, finish the full course of medication. Do so even if you begin to feel better sooner. If you stop the medication too soon, the infection can return and be harder to treat. You can use antacids, such as Tums, Rolaids, Mylanta, or Maalox, for pain. This will be useful the first few days after starting acid blockers when the blockers havent started working yet. Follow the directions on the label. Liquid antacids may work better than tablets. Note that antacids can interfere with absorption of certain medications. Specifically, do not take Tagamet (cimetidine), Zantac (ranitidine), or Carafate (sucralfate) within 1 hour of taking an antacid. Talk with your pharmacist if you have any questions. Although foods do not cause an ulcer, symptoms can be worsened by certain foods. Limit or avoid fatty, fried, and spicy foods, as well as coffee, chocolate, mint, and foods with high acid content such as tomatoes and citrus fruit and juices (orange, grapefruit, lemon). Avoid alcohol, caffeine, and tobacco, which can delay healing. Avoid aspirin and anti-inflammatory medications such as ibuprofen (Advil, Motrin) and naproxen (Naprosyn, Aleve). Acetaminophen (Tylenol) is safe to use. Do not take more than the amount listed on the label. Follow Up with your doctor or as advised. Further testing may be needed. If you do not begin to improve over the next 4 days, contact your doctor. If you had tests, youll be notified of any new findings that affect your care. Get Prompt Medical Attention if any of the following occur: Stomach pain gets worse or moves to the lower right abdomen (appendix area) Chest pain appears or gets worse, or spreads to the back, neck, shoulder, or arm Frequent vomiting (cant keep down liquids) Blood in the stool or vomit (red or black in color) Feeling weak or dizzy, fainting, or trouble breathing Fever of 100.4F (38C) or higher, or as directed by your healthcare provider Clear Liquid Diet Clear liquids are any liquid that you can see through as well as those that are very easy to digest. This is used while the body is recovering from irritation or infection of the stomach or intestinal tract. It may also be used before special procedures or surgery. This diet is to be used no more than three days. You may include the following items. Adults Adults should drink a total of 23 quarts of liquid per day. It may be easier to drink small frequent servings rather than a few large ones. Liquids can include: Fruit juices.Strained orange juice or lemonade (no pulp), apple, grape and cranberry juice, clear fruit drinks, sports drinks Beverages.Sport drinks, sodas, mineral water (plain or flavored), tea, black coffee, liquid gelatin (add twice the recommended amount of water) Soups.Clear broth, consomm, bouillon Desserts.Plain gelatin, popsicles, fruit juice bars Children Over 2 years old The following liquids are acceptable for children over age 2: Fruit juices.Strained orange juice or lemonade (no pulp), apple, grape and cranberry juice, clear fruit drinks Beverages. Sports drinks, sodas, mineral water (plain or flavored), tea, liquid gelatin (add twice the recommended amount of water) Soups. Clear broth, consomm, bouillon Desserts. Plain gelatin, popsicles, fruit juice bars Children under 2 years old Oral rehydration fluids such are available at drug stores and most grocery stores without a prescription. Pratt Diet A bland diet is used for patients with an upset stomach. It consists of foods that are mild and easy to digest. It is better to eat small frequent meals rather than three large meals a day. BEVERAGES OK: Fruit juices, non-caffeinated teas and coffee, non-carbonated palacios AVOID: Carbonated beverage, caffeinated tea and coffee, all alcoholic beverages BREAD OK: Refined white, wheat or rye bread, josefina or soda crackers, Monica toast, plain rolls, bagels AVOID: Whole-grain bread CEREAL OK: Refined cereals: cooked or ready to eat AVOID: Whole grain cereals and granola, or those containing bran, seeds or nuts DESSERTS OK: Peanut butter and all others except those to "avoid" AVOID: Chocolate, cocoa, coconut, popcorn, nuts, seeds, jam, marmalade FRUITS OK: Canned, cooked, frozen or fresh fruits without seeds or tough skin AVOID: Olives, skin and seeds of fruit MEATS OK: All fresh or preserved meat, fish and fowl AVOID: Any that are prepared with those spices to "avoid" CHEESE & EGGS OK: Eggs, cottage cheese, cream cheese, other cheeses AVOID: All cheeses made with those spices to "avoid" POTATOES & PASTA OK: Potato, rice, macaroni, noodles, spaghetti AVOID: None SOUPS OK: All soups without heavy seasoning AVOID: Soups made with those spices to "avoid" VEGETABLES OK: Canned, cooked, fresh or frozen mildly flavored vegetables without seeds, skins or coarse fiber AVOID: Vegetables prepared with those spices to "avoid"; skin and seeds of vegetables and those with coarse fiber SPICES OK: Salt, lemon and chehalis juice, vinegar, all extracts, lonny, cinnamon, thyme, mace, allspice, paprika AVOID: Grimes powder, cloves, pepper, seed spices, garlic, gravy pickles, highly seasoned salad dressings Ondansetron Oral disintegrating tablet What is this medicine? ONDANSETRON (on LLOYD se dorothy) is used to treat nausea and vomiting caused by chemotherapy. It is also used to prevent or treat nausea and vomiting after surgery. How should I use this medicine? These tablets are made to dissolve in the mouth. Do not try to push the tablet through the foil backing. With dry hands, peel away the foil backing and gently remove the tablet. Place the tablet in the mouth and allow it to dissolve, then swallow. While you may take these tablets with water, it is not necessary to do so. Talk to your carrier washer regarding the use of this medicine in children. Special care may be needed. What side effects may I notice from receiving this medicine? Side effects that you should report to your doctor or health critical care technician as soon as possible: allergic reactions like skin rash, itching or hives, swelling of the face, lips, or tongue breathing problems dizziness fast or irregular heartbeat feeling faint or lightheaded, falls fever and chills swelling of the hands and feet tightness in the chest Side effects that usually do not require medical attention (report to your doctor or health critical care technician if they continue or are bothersome): constipation or diarrhea headache What may interact with this medicine? Do not take this medicine with any of the following medications: -apomorphine -cisapride -dofetilide -dronedarone -pimozide -thioridazine -ziprasidone This medicine may also interact with the following medications: -carbamazepine -phenytoin -rifampicin -tramadol -other medicines that prolong the QT interval (cause an abnormal heart rhythm) What if I miss a dose? If you miss a dose, take it as soon as you can. If it is almost time for your next dose, take only that dose. Do not take double or extra doses. Where should I keep my medicine? Keep out of the reach of children. Store between 2 and 30 degrees C (36 and 86 degrees F). Throw away any unused medicine after the expiration date. What should I tell my health care provider before I take this medicine? They need to know if you have any of these conditions: heart disease history of irregular heartbeat liver disease low levels of magnesium or potassium in the blood an unusual or allergic reaction to ondansetron, granisetron, other medicines, foods, dyes, or preservatives or trying to get breast-feeding What should I watch for while using this medicine? Check with your doctor or health critical care technician as soon as you can if you have any sign of an allergic reaction. Sucralfate Oral tablet What is this medicine? SUCRALFATE (KALYNChris rodriguez fate) helps to treat ulcers of the intestine. How should I use this medicine? Take this medicine by mouth with a glass of water. Follow the directions on the prescription label. This medicine works best if you take it on an empty stomach, 1 hour before meals. Take your doses at regular intervals. Do not take your medicine more often than directed. Do not stop taking except on your doctor's advice. Talk to your carrier washer regarding the use of this medicine in children. Special care may be needed. What side effects may I notice from receiving this medicine? Side effects that you should report to your doctor or health critical care technician as soon as possible: allergic reactions like skin rash, itching or hives, swelling of the face, lips, or tongue difficulty breathing Side effects that usually do not require medical attention (report to your doctor or health critical care technician if they continue or are bothersome): back pain constipation drowsy, dizzy dry mouth headache stomach upset, gas trouble sleeping What may interact with this medicine? antacid cimetidine digoxin ketoconazole phenytoin quinidine ranitidine some antibiotics like ciprofloxacin, norfloxacin, and ofloxacin theophylline thyroid hormones warfarin What if I miss a dose? If you miss a dose, take it as soon as you can. If it is almost time for your next dose, take only that dose. Do not take double or extra doses. Where should I keep my medicine? Keep out of the reach of children. Store at room temperature between 15 and 30 degrees C (59 and 86 degrees F). Keep container tightly closed. Throw away any unused medicine after the expiration date. What should I tell my health care provider before I take this medicine? They need to know if you have any of these conditions: kidney disease an unusual or allergic reaction to sucralfate, other medicines, foods, dyes, or preservatives or trying to get breast-feeding What should I watch for while using this medicine? Visit your doctor or health critical care technician for regular check ups. Let your doctor know if your symptoms do not improve or if you feel worse. Antacids should not be taken within one half hour before or after this medicine. Omeprazole Magnesium Gastro-resistant tablet What is this medicine? OMEPRAZOLE (oh ME pray zol) prevents the production of acid in the stomach. It is used to treat the symptoms of heartburn. You can buy this medicine without a prescription. This product is not for long-term use, unless otherwise directed by your doctor or health critical care technician. How should I use this medicine? Take this medicine by mouth. Follow the directions on the product label. If you are taking this medicine without a prescription, take one tablet every day. Do not use for longer than 14 days or repeat a course of treatment more often than every 4 months unless directed by a doctor or healthcare professional. Take your dose at regular intervals every 24 hours. Swallow the tablet whole with a drink of water. Do not crush, break or chew. This medicine works best if taken on an empty stomach 30 minutes before breakfast. If you are using this medicine with the prescription of your doctor or healthcare professional, follow the directions you were given. Do not take your medicine more often than directed. Talk to your carrier washer regarding the use of this medicine in children. Special care may be needed. What side effects may I notice from receiving this medicine? Side effects that you should report to your doctor or health critical care technician as soon as possible: allergic reactions like skin rash, itching or hives, swelling of the face, lips, or tongue bone, muscle or joint pain breathing problems chest pain or chest tightness dark yellow or brown urine diarrhea dizziness fast, irregular heartbeat feeling faint or lightheaded fever or sore throat muscle spasm palpitations redness, blistering, peeling or loosening of the skin, including inside the mouth seizures tremors unusual bleeding or bruising unusually weak or tired yellowing of the eyes or skin Side effects that usually do not require medical attention (Report these to your doctor or health critical care technician if they continue or are bothersome.): constipation dry mouth headache loose stools nausea What may interact with this medicine? Do not take this medicine with any of the following medications: atazanavir clopidogrel nelfinavir This medicine may also interact with the following medications: ampicillin certain medicines for anxiety or sleep certain medicines that treat or prevent blood clots like warfarin cyclosporine diazepam digoxin disulfiram iron salts phenytoin prescription medicine for fungal or yeast infection like itraconazole, ketoconazole, voriconazole saquinavir tacrolimus What if I miss a dose? If you miss a dose, take it as soon as you can. If it is almost time for your next dose, take only that dose. Do not take double or extra doses. Where should I keep my medicine? Keep out of the reach of children. Store at room temperature between 20 and 25 degrees C (68 and 77 degrees F). Protect from light and moisture. Throw away any unused medicine after the expiration date. What should I tell my health care provider before I take this medicine? They need to know if you have any of these conditions: black or bloody stools chest pain difficulty swallowing have had heartburn for over 3 months have heartburn with dizziness, lightheadedness or sweating liver disease stomach pain unexplained weight loss vomiting with blood wheezing an unusual or allergic reaction to omeprazole, other medicines, foods, dyes, or preservatives or trying to get breast-feeding What should I watch for while using this medicine? It can take several days before your heartburn gets better. Check with your doctor or health critical care technician if your condition does not start to get better, or if it gets worse. Do not treat diarrhea with over the counter products. Contact your doctor if you have diarrhea that lasts more than 2 days or if it is severe and watery. Do not treat yourself for heartburn with this medicine for more than 14 days in a row. You should only use this medicine for a 2-week treatment period once every 4 months. If your symptoms return shortly after your therapy is complete, or within the 4 month time frame, call your doctor or health critical care technician. You have been given the following additional information: Gastritis (Adult) Gastritis Vs. Ulcer Diet, Clear Liquid Diet, Pratt (Adult) Ondansetron Oral disintegrating tablet Sucralfate Oral tablet Omeprazole Magnesium Gastro-resistant tablet (Electronically signed by Buster Main MD 09/01/2016 20:44)
== END 2016-08-31 14:50 | disposition home or self-care (01) ==
LOC: ED SRH 09:20
DX: K29.20 Alcoholic gastritis without bleeding (principal); F10.20 Alcohol dependence, uncomplicated; E78.5 Hyperlipidemia, unspecified
CPT/HCPCS: 90100; 90616; 92010; 92235; 92530; 92610; 92720; 92760; 92761; 92762; 92763; 92764; 92765; 92766; 92767; 95059